=== PATIENT | female | born 1935 | race Caucasian/White ===

== ENCOUNTER 2018-06-18 13:11 | Inpatient (IN) | payer MEDICARE, OTHER ==
--- NOTE | 2018-06-18 14:11 | C.PDOC ---
History Of Present Illness Translated via son 83 year old female patient with hx of HTN and HLD presents to the ER c/o pain from right knee to right ankle for x1 week. Associated symptoms includes vomiting and painful to bear weight on right leg. Patient notes she tried taking Naprosyn and Tylenol with no relief. Patient had an US of her right leg x4 days ago, results were (-) negative. Patient denies leg swelling, no trauma, no chest pain, no SOB and has never had this pain before. She denies any redness or swelling to the knee Time Seen by Provider: 06/18/18 13:50 Chief Complaint (Nursing): GI Problem History Per: Patient History/Exam Limitations: no limitations Onset/Duration Of Symptoms: Days (x1 week) Current Symptoms Are (Timing): Still Present Past Medical History Reviewed: Historical Data, Nursing Documentation, Vital Signs Vital Signs: Last Vital Signs Temp 97.9 F 06/18/18 13:35 Pulse 70 06/18/18 13:35 Resp 16 06/18/18 13:35 BP 172/69 H 06/18/18 13:35 Pulse Ox 98 06/18/18 13:35 - Medical History PMH: HTN, Hyperlipidemia, Hypothyroidism Family History: States: Unknown Family Hx - Social History Hx Alcohol Use: No Hx Substance Use: No - Immunization History Hx Tetanus Toxoid Vaccination: No Hx Influenza Vaccination: No Hx Pneumococcal Vaccination: No Review Of Systems Constitutional: Positive for: Other (painful to bear weight on right knee and right ankle; no trauma/fall) Cardiovascular: Negative for: Chest Pain Respiratory: Negative for: Shortness of Breath Gastrointestinal: Positive for: Vomiting Musculoskeletal: Positive for: Leg Pain (right knee and right ankle ). Negative for: Other (leg swelling) Physical Exam - Physical Exam Appears: Non-toxic, No Acute Distress Skin: Warm, Dry Head: Normacephalic Eye(s): bilateral: Normal Inspection, PERRL, EOMI Oral Mucosa: Moist Neck: Normal ROM, Trachea Midline, Supple Chest: Symmetrical, No Deformity Cardiovascular: Rhythm Regular, No Friction Rub Respiratory: No Rales, No Rhonchi, No Wheezing Gastrointestinal/Abdominal: Soft, No Tenderness, No Distention Extremity: Normal ROM, Tenderness (posterior R knee and R ankle), No Calf Tenderness, Capillary Refill (<2 sec), No Swelling Extremity: Left: Atraumatic, Right: Atraumatic, Painful To Bear Weight, Bilateral: Hips Non-Tender, Normal Color And Temperature, Other (n/v intact, Full passive and active ROM) Pulses: Left Dorsalis Pedis: Normal, Right Dorsalis Pedis: Normal Neurological/Psych: Oriented x3, Normal Speech, Normal Cognition, No Cerebellar Signs, Normal Motor Extremity: Right: No Drift, Left: No Drift, Upper: No Drift, Lower: No Drift ED Course And Treatment - Laboratory Results Result Diagrams: 06/18/18 14:36 06/18/18 15:06 O2 Sat by Pulse Oximetry: 98 (RA) Pulse Ox Interpretation: Normal - Other Rad R knee X-Ray: Read By Radiologist Interpretation: Accession No. : [id number]. Patient Name / ID : CARL THORNE / [id number]. Exam Date : 06/18/2018 14:33:03 ( Approved ). Study Comment : Sex / Age : F / 83Y. Creator : Shyam Hendricks MD. Dictator : Shyam Hendricks MD. Clinical Staff Anesthesiologist : Consulting Practice Manager : Shyam Hendricks MD. Approver2 : Report Date : 06/18/2018 15:21:33. My Comment : . Date of service: 06/18/2018. PROCEDURE: Right Knee Radiographs. HISTORY: r knee pain. COMPARISON: None. FINDINGS: BONES: Normal. No fracture. JOINTS: There appears to be mild medial joint space narrowing. JOINT EFFUSION: Small suprapatellar joint effusion. OTHER FINDINGS: None. IMPRESSION: No fractures. Small suprapatellar joint effusion Medical Decision Making Medical Decision Makin yr old female w/ hx HTN, recent negative DVT study @ [facility] p/w R knee pain w/ out swelling or trauma and multiple episodes of N/V. No fever or chills. No erythema overlaying knee. No hx of knee surgery. N/V intact distally. Full ROM, passive and actively. No pain to R foot, R hip or R ankle. ?severe osteoarthritis vs fx. Impression: right knee and ankle pain with vomiting Plans: -- EKG -- blood work -- XR right knee -- Zofran -- UA 1500 1530 XR Knee unremarkable. Na+ to 108, gentle hydration started K to 2.9, to replete Mag 1.4, to replete Gluc unremarkable Paged ICU: they will call back [phone] Paged ICU: they will call back [phone] appreciate consult w/ Dr. De Anda: we are to order urine lytes and osm, contin ue slow na hydration. Accepts admission appreciate consult w/ Dr. Bullock: accepts admission Pt notes pain to R knee: morphine ordered. No redness. N/V intact. Full Active and passive ROM. Disposition - Disposition Disposition Time: 15:30 Condition: GOOD Forms: [facility] (Kinyarwanda) - Clinical Impression Clinical Impression: Hyponatremia - Scribe Statement The provider has reviewed the documentation as recorded by the Thuan Bunn Do Provider Attestation: All medical record entries made by the Scribe were at my direction and personally dictated by me. I have reviewed the chart and agree that the record accurately reflects my personal performance of the history, physical exam, medical decision making, and the department course for this patient. I have also personally directed, reviewed, and agree with the discharge instructions and disposition.
[2018-06-18 14:38] LABS: BASO % 0.1 % (0.0-2.0); HEMOGLOBIN 12.5 g/dL (11.0-16.0); LYMPH # 0.7 K/uL (1.0-4.3); MEAN CELL VOLUME 82.6 fL (81.0-99.0); MEAN CORPUSCULAR HEMOGLOBIN 29.4 pg (27.0-31.0); MEAN CORPUSCULAR HGB CONC 35.6 g/dL (33.0-37.0); MEAN PLATELET VOLUME 7.4 fL (7.2-11.7); MONO # 0.4 K/uL (0.0-0.8); MONO % 3.4 % (0.0-10.0); NEUT # 11.2 K/uL (1.8-7.0); NEUT % 90.5 % (50.0-75.0); PLATELET COUNT 271 K/uL (130-400); RBC 4.25 Mil/uL (3.80-5.20); RED CELL DISTRIBUTION WIDTH 13.9 % (11.5-14.5); WHITE BLOOD COUNT 12.4 K/uL (4.8-10.8)
[2018-06-18 15:07] LABS: BANDS 3 % (0-2); LYMPHOCYTE 6 % (20-40); MONOCYTE 3 % (0-10); NEUTROPHIL 88 % (50-75); PLATELET ESTIMATE NORMAL (NORMAL); TOTAL CELLS COUNTED 100
--- NOTE | 2018-06-18 15:23 | RAD ---
Date of service: 06/18/2018 PROCEDURE: Right Knee Radiographs. HISTORY: r knee pain COMPARISON: None. FINDINGS: BONES: Normal. No fracture. JOINTS: There appears to be mild medial joint space narrowing. JOINT EFFUSION: Small suprapatellar joint effusion OTHER FINDINGS: None. IMPRESSION: No fractures. Small suprapatellar joint effusion
[2018-06-18 15:52] LABS: ALB/GLOB RATIO 1.5 (1.0-2.1); ALBUMIN 4.5 g/dL (3.5-5.0); ALT/SGPT 44 U/L (9-52); AST/SGOT 82 U/L (14-36); BLOOD UREA NITROGEN 12 mg/dL (7-17); CALCIUM 8.6 mg/dl (8.6-10.4); GFR NON-AFRICAN AMERICAN > 60; LIPASE 64 U/L (23-300)
[2018-06-18] MEDS ORDERED: Potassium Chloride 20 mEq ER Tab PO ONE ×2 (15:59→16:17)
[2018-06-18] MEDS ORDERED: Magnesium Sulfate 1 gm in D5W 1 GM/100 ML BAG IVPB ONE ×2 (16:00→16:17)
[2018-06-18] MEDS ORDERED: Sodium Chloride 0.9% 1,000 ML IV SCH ×2 (16:15→16:46)
[2018-06-18] MEDS ORDERED: Morphine 4 MG/ML VIAL ONE (16:19)
[2018-06-18] MEDS ORDERED: Sodium Chloride 0.9% 1,000 ML ONE (17:37)
[2018-06-18] MEDS: Sodium Chloride 0.9% 1,000 ML IV SCH (17:38)
[2018-06-18 19:27] LABS: BLOOD UREA NITROGEN 11 mg/dL (7-17); CALCIUM 8.4 mg/dl (8.6-10.4); GFR NON-AFRICAN AMERICAN > 60; HDL CHOLESTEROL 98 mg/dL (30-70)
[2018-06-18 19:34] LABS: LDL CHOLESTEROL 54 mg/dL (0-129)
[2018-06-18 19:37] LABS: B-TYPE NATRIURETIC PEPTIDE 915 pg/mL (0-900); FREE T4 1.49 ng/dL (0.78-2.19)
[2018-06-18 19:37] LABS: CREATININE, RANDOM URINE 53.4 mg/dL
[2018-06-18 19:58] LABS: T3 0.963 nmol/L (1.49-2.60)
[2018-06-18] MEDS: Potassium Chloride 20 mEq ER Tab PO SCH (20:03)
[2018-06-18] MEDS: Magnesium Sulfate 1 gm in D5W 1 GM/100 ML BAG IVPB SCH ×2 (20:04→21:09)
--- NOTE | 2018-06-18 20:39 | CP.PCM.CON ---
History of Present Illness - History of Present Illness History of Present Illness: ICU Consult Note Baljit Cyr, [facility] PGY-3 This is an 83 yo F with PMH of HTN, HLD, and Hypothyroidism who presented to for complaint of R knee pain. ICU was consulted due to Na 108 on labs in the ED. As per son at bedside, patient developed pain 4 days prior, and was seen in the ED at [facility] at that time. Duplex was done, negative for DVT, so patient was discharged to home with Naprosyn, which has not provided relief. Pain has persisted into today, so son brought patient in. Additionally, son reports onset of multiple episodes of clear emesis since yesterday, occasionally triggered with PO Naprosyn but also occurring without clear inciting factor, and not triggered with all PO intake (s till tolerating other meds, tolerating PO fluids). Son and patient estimate 10- episodes total of clear emesis between yesterday afternoon and now. Denies bilious or bloody emesis. Of note, patient is on thiazide diuretic for HTN, and reports compliance with all medications. Denies fevers, chills, chest pain, shortness of breath, diarrhea, focal weakness, dizziness, vision changes, or dysuria. Son denies observing any clear neurologic sx, including seizures, focal or generalized twitching/shaking, or pt reporting severe/pounding headaches. No prior hx of severe (or any) hyponatremia as per son. All other ROS in 12-system review negative. PMH: as above PSH: denies Fam Hx: unknown by pt and son Soc Hx: denies alcohol/tobacco/illicits PMD: Dr. Bullock Review of Systems - Review of Systems All systems: reviewed and no additional remarkable complaints except (as per HPI) Past Patient History - Past Medical History & Family History Past Medical History?: Yes - Past Social History Smoking Status: Never Smoked - CARDIAC Hx Hypertension: Yes - HEENT Other/Comment: Wears glasses - ENDOCRINE/METABOLIC Hx Hypothyroidism: Yes - MUSCULOSKELETAL/RHEUMATOLOGICAL Hx Falls: No - PSYCHIATRIC Hx Substance Use: No - SURGICAL HISTORY Hx Surgeries: No - ANESTHESIA Hx Anesthesia: No Meds Allergies/Adverse Reactions: Allergies Allergy/AdvReac Type Severity Reaction Status Date / Time No Known Allergies Allergy Verified 06/18/18 20:17 - Medications Medications: Current Medications Amlodipine Besylate (Norvasc) 5 mg PO DAILY [facility] Last Admin: 06/18/18 17:38 Dose: 5 mg Sodium Chloride (Sodium Chloride 0.9%) 1,000 mls @ 75 mls/hr IV .[id number] [facility] Last Admin: 06/18/18 17:38 Dose: 75 mls/hr Potassium Chloride (Potassium Chloride 10 Meq/100 Ml) 10 meq in 100 mls @ 100 mls/hr IVPB Q1H [facility] Stop: 06/18/18 23:44 Ondansetron HCl (Zofran Inj) 4 mg IVP Q6 PRN PRN Reason: Nausea/Vomiting Potassium Chloride (K-Dur 20 Meq Er Tab) 40 meq PO Q6H [facility] Stop: 06/19/18 13:46 Last Admin: 06/18/18 20:03 Dose: 40 meq Physical Exam - Constitutional Appears: Non-toxic, No Acute Distress (complaining about knee pain, but had received morphine in ED prior to assessment by ICU team) - Head Exam Head Exam: ATRAUMATIC, NORMAL INSPECTION, NORMOCEPHALIC - Eye Exam Eye Exam: Normal appearance. absent: Conjunctival injection, Scleral icterus Pupil Exam: absent: Fixed, Irregular - ENT Exam ENT Exam: Mucous Membranes Moist. absent: Mucous Membranes Dry Additional comments: not clinically dry appearing - Neck Exam Neck exam: Positive for: Full Rom, Normal Inspection. Negative for: Thyromegaly - Respiratory Exam Respiratory Exam: Clear to Auscultation Bilateral, NORMAL BREATHING PATTERN. absent: Accessory Muscle Use, Chest Wall Tenderness, Decreased Breath Sounds, Rales, Rhonchi, Wheezes - Cardiovascular Exam Cardiovascular Exam: REGULAR RHYTHM, RRR, +S1, +S2. absent: Bradycardia, Tachycardia, Irregular Rhythm, JVD, +S4 - GI/Abdominal Exam GI & Abdominal Exam: Normal Bowel Sounds, Soft. absent: Diminished Bowel Sounds, Distended, Firm, Hyperactive Bowel Sounds, Hypoactive Bowel Sounds, Rigid, Tenderness - Extremities Exam Extremities exam: Positive for: normal capillary refill, normal inspection, pedal pulses present. Negative for: calf tenderness, pedal edema, tenderness Additional comments: pt reports pain at medial R knee and inferiorly, but not present at time of ICU team exam (had just received IV morphine from ED however, may be confounding exam) - Neurological Exam Additional comments: awake and alert, answering questions through son appropriately, following commands appropriately - Psychiatric Exam Psychiatric exam: Normal Affect, Normal Mood - Skin Skin Exam: Dry, Intact, Normal Color, Warm Results - Vital Signs Recent Vital Signs: Last Vital Signs Temp 97.7 F 06/18/18 18:40 Pulse 83 06/18/18 20:00 Resp 20 06/18/18 20:00 BP 128/50 L 06/18/18 19:44 Pulse Ox 94 L 06/18/18 20:00 - Labs Result Diagrams: 06/18/18 14:36 06/18/18 18:53 Labs: Laboratory Results - last 24 hr 06/18/18 06/18/18 06/18/18 14:36 15:06 18:53 WBC 12.4 H RBC 4.25 Hgb 12.5 Hct 35.0 MCV 82.6 MCH 29.4 MCHC 35.6 RDW 13.9 Plt Count 271 MPV 7.4 Neut % (Auto) 90.5 H Lymph % (Auto) 6.0 L [place] % (Auto) 3.4 Eos % (Auto) 0.0 Baso % (Auto) 0.1 Neut # (Auto) 11.2 H Lymph # (Auto) 0.7 L [place] # (Auto) 0.4 Eos # (Auto) 0.0 Baso # (Auto) 0.0 Neutrophils % (Manual) 88 H Band Neutrophils % 3 H Lymphocytes % (Manual) 6 L Monocytes % (Manual) 3 Platelet Estimate Normal RBC Morphology Normal Sodium 108 L* 108 L* Potassium 2.9 L 2.4 L* Chloride 68 L 68 L Carbon Dioxide 28 27 Anion Gap 15 15 BUN 12 11 Creatinine 0.6 L 0.6 L Est GFR ( Amer) > 60 > 60 Est GFR (Non-Af Amer) > 60 > 60 Random Glucose 141 H 154 H Serum Osmolality Calcium 8.6 8.4 L Magnesium 1.4 L Total Bilirubin 0.9 AST 82 H ALT 44 Alkaline Phosphatase 61 NT-Pro-B Natriuret Pep 915 H Total Protein 7.5 Albumin 4.5 Globulin 3.0 Albumin/Globulin Ratio 1.5 Triglycerides 43 Cholesterol 186 LDL Cholesterol Direct 54 HDL Cholesterol 98 H Lipase 64 Free T4 Thyroxine (T4) 10.0 Free T3 pg/mL 2.05 L Total T3 0.963 L TSH 3rd Generation 4.54 Urine Osmolality Ur Random Creatinine Ur Random Sodium Ur Random Potassium Ur Random Urea Nitrogn 06/18/18 06/18/18 06/18/18 18:53 19:26 19:26 WBC RBC Hgb Hct MCV MCH MCHC RDW Plt Count MPV Neut % (Auto) Lymph % (Auto) Cole % (Auto) Eos % (Auto) Baso % (Auto) Neut # (Auto) Lymph # (Auto) Cole # (Auto) Eos # (Auto) Baso # (Auto) Neutrophils % (Manual) Band Neutrophils % Lymphocytes % (Manual) Monocytes % (Manual) Platelet Estimate RBC Morphology Sodium Potassium Chloride Carbon Dioxide Anion Gap BUN Creatinine Est GFR ( Amer) Est GFR (Non-Af Amer) Random Glucose Serum Osmolality 229 L Calcium Magnesium Total Bilirubin AST ALT Alkaline Phosphatase NT-Pro-B Natriuret Pep Total Protein Albumin Globulin Albumin/Globulin Ratio Triglycerides Cholesterol LDL Cholesterol Direct HDL Cholesterol Lipase Free T4 1.49 Thyroxine (T4) Free T3 pg/mL Total T3 TSH 3rd Generation Urine Osmolality 485 Ur Random Creatinine 53.4 Ur Random Sodium 71 Ur Random Potassium 67.3 Ur Random Urea Nitrogn 498 Assessment & Plan - Assessment and Plan (Free Text) Assessment: This is an 83 yo F with PMH of HTN, HLD, and Hypothyroidism who presented to for complaint of R knee pain, but was found to be severely hyponatremia at 108. She was admitted to the ICU for careful repletion of sodium and for close monitoring, given the high seizure risk associated with her hyponatremia. Plan: Neuro: -awake and alert, following all commands appropriately -no reported seizure activity, but high risk due to Na 108 -close monitoring in ICU while carefully repleting sodium, goal is Na increased by 4-6 within 24 hours and not more than 10-12 within 48 hours Pulm: -no respiratory distress in ED, clear breath sounds on exam -CXR ordered to assess for lung mass given concern for SIADH, f/u -no indication for supplemental O2 at this time, satting well on room air Cardio: -Hx HTN, but holding Thiazide diuretic due to hypoNa, will instead start Norvasc 5mg PO daily for HTN while inpatient -NS 75cc/hr, BMPs q4 to monitor sodium -maintaining MAP > 65, no indication for pressor support at this time GI: -NPO except meds due to high seizure risk, want to avoid aspiration -Protonix for GI ppx, Zofran PRN for N/V prevention Renal: -severe hyponatremia at 108, ddx: SIADH vs hypovolemic hypoNa (2/2 thiazide diuretic +/- multiple episodes of emesis) hypochloremia and hypokalemia likely 2/2 emesis NS 75cc/hr, BMPs q4 -urine and serum osms ordered, urine electrolytes ordered, thyroid panel ordered -Mag 1.4, repleted in ED, pending recheck -K 2.9, to be repleted after Mag to ensure adequate uptake of K -Nephro consulted (Dr. Arevalo), appreciate all recs -Cr 0.6, making urine, continue to monitor -Best, strict I's and O's Heme: -Hgb 12.5, no prior labs for comparison -no signs/sx of bleeding, continue to monitor -SCDs for DVT ppx ID: -WBCs 12.4, but afebrile -possibly stress rxn 2/2 complaint of knee pain, continue to monitor -cultures ordered, f/u -can monitor off abx for now Dispo: ICU for close monitoring given high seizure risk, careful repletion of sodium with BMPs q4 FEN: NPO, NS 75cc/hr, K and Mg repletions as needed Access: Peripheral IVs Consults: Nephro, ICU Ppx: Protonix for GI, SCDs for DVT Code Status: unknown, so FULL by default Seen, reviewed, and discussed with attending, Dr. De Anda
--- NOTE | 2018-06-18 21:26 | CP.PCM.HP ---
Present on Admission - Present on Admission Any Indicators Present on Admission: No Past Patient History - Past Medical History & Family History Past Medical History?: Yes - Past Social History Smoking Status: Never Smoked - CARDIAC Hx Hypertension: Yes - HEENT Other/Comment: Wears glasses - ENDOCRINE/METABOLIC Hx Hypothyroidism: Yes - MUSCULOSKELETAL/RHEUMATOLOGICAL Hx Falls: No - PSYCHIATRIC Hx Substance Use: No - SURGICAL HISTORY Hx Surgeries: No - ANESTHESIA Hx Anesthesia: No Meds Allergies/Adverse Reactions: Allergies Allergy/AdvReac Type Severity Reaction Status Date / Time No Known Allergies Allergy Verified 06/18/18 20:17 Results - Vital Signs Recent Vital Signs: Last Vital Signs Temp 97.7 F 06/18/18 18:40 Pulse 83 06/18/18 20:00 Resp 20 06/18/18 20:00 BP 128/50 L 06/18/18 19:44 Pulse Ox 94 L 06/18/18 20:00 - Labs Result Diagrams: 06/21/18 06:11 06/21/18 06:11 Labs: Laboratory Results - last 24 hr 06/18/18 06/18/18 06/18/18 14:36 15:06 18:53 WBC 12.4 H RBC 4.25 Hgb 12.5 Hct 35.0 MCV 82.6 MCH 29.4 MCHC 35.6 RDW 13.9 Plt Count 271 MPV 7.4 Neut % (Auto) 90.5 H Lymph % (Auto) 6.0 L [place] % (Auto) 3.4 Eos % (Auto) 0.0 Baso % (Auto) 0.1 Neut # (Auto) 11.2 H Lymph # (Auto) 0.7 L [place] # (Auto) 0.4 Eos # (Auto) 0.0 Baso # (Auto) 0.0 Neutrophils % (Manual) 88 H Band Neutrophils % 3 H Lymphocytes % (Manual) 6 L Monocytes % (Manual) 3 Platelet Estimate Normal RBC Morphology Normal Sodium 108 L* 108 L* Potassium 2.9 L 2.4 L* Chloride 68 L 68 L Carbon Dioxide 28 27 Anion Gap 15 15 BUN 12 11 Creatinine 0.6 L 0.6 L Est GFR ( Amer) > 60 > 60 Est GFR (Non-Af Amer) > 60 > 60 Random Glucose 141 H 154 H Serum Osmolality Calcium 8.6 8.4 L Magnesium 1.4 L Total Bilirubin 0.9 AST 82 H ALT 44 Alkaline Phosphatase 61 NT-Pro-B Natriuret Pep 915 H Total Protein 7.5 Albumin 4.5 Globulin 3.0 Albumin/Globulin Ratio 1.5 Triglycerides 43 Cholesterol 186 LDL Cholesterol Direct 54 HDL Cholesterol 98 H Lipase 64 Free T4 Thyroxine (T4) 10.0 Free T3 pg/mL 2.05 L Total T3 0.963 L TSH 3rd Generation 4.54 Urine Osmolality Ur Random Creatinine Ur Random Sodium Ur Random Potassium Ur Random Urea Nitrogn 06/18/18 06/18/18 06/18/18 18:53 19:26 19:26 WBC RBC Hgb Hct MCV MCH MCHC RDW Plt Count MPV Neut % (Auto) Lymph % (Auto) [place] % (Auto) Eos % (Auto) Baso % (Auto) Neut # (Auto) Lymph # (Auto) [place] # (Auto) Eos # (Auto) Baso # (Auto) Neutrophils % (Manual) Band Neutrophils % Lymphocytes % (Manual) Monocytes % (Manual) Platelet Estimate RBC Morphology Sodium Potassium Chloride Carbon Dioxide Anion Gap BUN Creatinine Est GFR ( Amer) Est GFR (Non-Af Amer) Random Glucose Serum Osmolality 229 L Calcium Magnesium Total Bilirubin AST ALT Alkaline Phosphatase NT-Pro-B Natriuret Pep Total Protein Albumin Globulin Albumin/Globulin Ratio Triglycerides Cholesterol LDL Cholesterol Direct HDL Cholesterol Lipase Free T4 1.49 Thyroxine (T4) Free T3 pg/mL Total T3 TSH 3rd Generation Urine Osmolality 485 Ur Random Creatinine 53.4 Ur Random Sodium 71 Ur Random Potassium 67.3 Ur Random Urea Nitrogn 498
--- NOTE | 2018-06-18 22:19 | CP.PCM.PN ---
Subjective - Date & Time of Evaluation Date of Evaluation: 06/18/18 Time of Evaluation: 18:30 - Subjective Subjective: 83 yo F w/ pmh of htn, hypothyroidism, was brought to ED by family after multiple episodes of vomiting since yesterday; found to be severely hyponatremic for which nephrology is being consulted; Patient reportedly had suddent onset of R lower leg pain that started a few days ago; she went to [facility] where US was done that was reportedly negative per her son; she was prescribed ibuprofen and sent home; patient started taking both naproxen and advil without significant improvement in pain; PO food intake had decreased since previous few days but vomiting gurwinder began yesterday with son reporting 10-11 episodes until earlier today; no associated diarrhea; patient denies any feeling of dizziness; denies any decrease in ur ination; patient did continue to drink 5-6 cups of water daily; Objective - Vital Signs/Intake and Output Vital Signs (last 24 hours): Temp Pulse Resp BP Pulse Ox 97.7 F 83 20 128/50 L 94 L 06/18/18 18:40 06/18/18 20:00 06/18/18 20:00 06/18/18 19:44 06/18/18 20:00 - Medications Medications: Current Medications Amlodipine Besylate (Norvasc) 5 mg PO DAILY [facility] Last Admin: 06/18/18 17:38 Dose: 5 mg Sodium Chloride (Sodium Chloride 0.9%) 1,000 mls @ 75 mls/hr IV .[id number] [facility] Last Admin: 06/18/18 17:38 Dose: 75 mls/hr Potassium Chloride (Potassium Chloride 10 Meq/100 Ml) 10 meq in 100 mls @ 100 mls/hr IVPB Q1H [facility] Stop: 06/18/18 23:44 Last Admin: 06/18/18 21:32 Dose: 100 mls/hr Ondansetron HCl (Zofran Inj) 4 mg IVP Q6 PRN PRN Reason: Nausea/Vomiting Pantoprazole Sodium (Protonix Ec Tab) 20 mg PO DAILY [facility] Potassium Chloride (K-Dur 20 Meq Er Tab) 40 meq PO Q6H [facility] Stop: 06/19/18 13:46 Last Admin: 06/18/18 20:03 Dose: 40 meq - Labs Labs: 06/18/18 14:36 06/18/18 18:53 - Constitutional Appears: Non-toxic, No Acute Distress - Eye Exam Eye Exam: Normal appearance. absent: Scleral icterus - ENT Exam ENT Exam: Mucous Membranes Moist - Respiratory Exam Respiratory Exam: Clear to Ausculation Bilateral. absent: Respiratory Distress - Cardiovascular Exam Cardiovascular Exam: RRR, +S1, +S2 - GI/Abdominal Exam GI & Abdominal Exam: Soft. absent: Distended, Tenderness - Exam Exam: absent: Bladder Distension - Extremities Exam Additional comments: no leg edema; - Neurological Exam Neurological Exam: Alert, Awake - Psychiatric Exam Psychiatric exam: Normal Affect, Normal Mood - Skin Skin Exam: Normal Color, Warm Assessment and Plan (1) Hyponatremia Assessment & Plan: Severe hyponatremia in the setting of GI losses from vomiting as well as being on thiazide diuretic; inadequate solute intake as well as severe pain and NSAID use may have been contributory; high urine osm can be consistent with volume depletion; timeframe of drop in serum Na appears to have happened recently as patient reportedly had blood work just a few days ago with serum Na preumably close to normal range (results not available); -Goal correction of serum Na is no more than 6-8 meq over 24 hr period to avoid osmotic demyelination; -Agree with IVF w/ NS at 75 cc/hr; -Agree with aggressive potassium replenishment (will help correct hyponatremia); -If no improvement in serum Na within a few hours, recommend to bolus 250-500 cc to attempt to correct volume depletion impetus for high ADH activity; -Will avoid tolvaptan until serum Na safely in 120's range (even if this is SIADH, tolvaptan would not be a good choice for now as we cannot predict how quickly it would raise serum Na); -Avoid NSAIDS for pain (potentiates the effect of ADH); -Continue adequate pain control with other meds; -PO 1.5L daily fluid restriction; Status: Acute (2) Hypokalemia Assessment & Plan: Profound hypokalemia likely induced by vomiting, thiazide diuretic as well as secondary hyperaldosteronism due to volume depletion; agree with aggressive K repletion as well as IVF; agree with Mag repletion (should run IV Mag slow to avoid renal wasting); Status: Acute (3) HTN (hypertension) Assessment & Plan: BP dropping, currently normotenive; agree with holding thiazide in the setting of hyponatremia; agree with norvasc 5 mg daily; Status: Chronic - Assessment and Plan (Free Text) Assessment: Critical care time > 35 minutes
[2018-06-18 23:31] LABS: BLOOD UREA NITROGEN 10 mg/dL (7-17); CALCIUM 7.9 mg/dl (8.6-10.4); GFR NON-AFRICAN AMERICAN > 60
[2018-06-19] MEDS: Sodium Chloride 0.9% 500 ML IV SCH ×2 (00:26→01:41)
[2018-06-19] MEDS: Potassium Chloride 20 mEq ER Tab PO SCH ×4 (01:45→14:13)
[2018-06-19] MEDS ORDERED: DiphenhydrAMINE 50 mg/ml Inj IVP STA (03:28)
[2018-06-19] MEDS ORDERED: DiphenhydrAMINE 12.5 mg/5 ml LIQ UD (5 ml) PO STA (03:32)
[2018-06-19] MEDS: Sodium Chloride 0.9% 1,000 ML IV SCH ×2 (03:47→07:07)
[2018-06-19 06:35] LABS: BASO % 0.1 % (0.0-2.0); EOS % 0.1 % (0.0-4.0); LYMPH # 1.2 K/uL (1.0-4.3); LYMPH % 7.9 % (20.0-40.0); MEAN CELL VOLUME 83.1 fL (81.0-99.0); MEAN CORPUSCULAR HEMOGLOBIN 29.7 pg (27.0-31.0); MEAN CORPUSCULAR HGB CONC 35.7 g/dL (33.0-37.0); MEAN PLATELET VOLUME 7.7 fL (7.2-11.7); MONO # 1.4 K/uL (0.0-0.8); MONO % 9.4 % (0.0-10.0); NEUT # 12.3 K/uL (1.8-7.0); NEUT % 82.5 % (50.0-75.0); PLATELET COUNT 261 K/uL (130-400); RBC 4.04 Mil/uL (3.80-5.20); RED CELL DISTRIBUTION WIDTH 14.2 % (11.5-14.5)
--- NOTE | 2018-06-19 06:40 | PN ---
DATE: 06/18/2018 CHIEF COMPLAINT: Right knee and leg pain. SUBJECTIVE: This is an 83-year-old female, who has a history of hypertension and hyperlipemia. She denies any history of diabetes, heart problems. She is not taking any diuretics and according to the son for the last 3 days, she is having right knee and leg pain, which was intense, nontolerable as she came to the emergency room. Pain is present on rest as well as is worse with exacerbation and it is in the right knee all the way down to right ankle. The patient denies any history of injury. There is some swelling of the leg. She denies any fever or chills. She denies any change in color. She denies any trauma to the leg. She has prior history of arthritis, extensive, in the small and large joints of the body. She denies any history of shoulder pain, elbow pains, or pain on the other side of the leg. She denies any history of prolonged immobilization or long distance travel. She denies any nausea or vomiting. Other than that, the patient has no symptoms. She denies any headache, dizziness, or vertigo. She has extensive nausea and vomiting according to son yesterday, and the patient attempted to control her pain with and Tylenol with no response. According to her, she had ultrasound of her right leg done from her doctor's advice, which was negative for blood clots. Other than that, she denies any chest pain or palpitation. She denies any history of tingling, numbness, paresthesias. She denies any history of polyuria, polydipsia, polyphagia. She denies any history of hematuria or pyuria. PAST MEDICAL HISTORY: Hypertension, hyperlipemia, and hypothyroidism. SOCIAL HISTORY: Nonsmoker, non-ET[employer] user. CURRENT MEDICATIONS: At home, she is on Pravachol, multivitamin, levothyroxine 25 mg, and chlorthalidone. PHYSICAL EXAMINATION: GENERAL: This in an elderly female in [id number] distress with right leg pain. VITAL SIGNS: Blood pressure 128/50, pulse 57, respiratory rate 17, temperature 99. SKIN: Senile turgor, no bruits, no purpura. HEENT: Atraumatic, normocephalic, negative pallor, negative jaundice. Extraocular movements are intact. NECK: Supple. No JVD. No lymph nodes. No thyromegaly. No carotid bruits. CHEST WALL: Bilateral symmetrical expansion. No tenderness. No deformity. LUNGS: Bilaterally clear. No rales. No rhonchi. CVS: S1 and S2, regular. No heave noted. ABDOMEN: Soft and nontender. Bowel sounds are positive. RECTAL: No masses. No bleed. EXTREMITIES: No clubbing, cyanosis, or edema. Right knee, there is some puffiness and there is restricted range of movement. EXCHANGE TELLER: Awake, alert, and oriented x3. Cranial nerve II through XII are normal. Power 5/5 x4. Plantars are downgoing. ASSESSMENT: 1. Right knee pain, most likely , likely to be deep venous thrombosis. 2. Hyponatremia and hypochloremia. The patient has intense nausea and vomiting as per son. The patient has low sodium and low potassium. Also, there is diuretic as the patient was taking for some multifactorial hyponatremia. 3. Hypokalemia. 4. History of hypertension. PLAN: The patient is admitted to ICU. X-rays of the knee show arthritis, and we will monitor the patient. Juan R Bullock MD
[2018-06-19 06:54] LABS: ALB/GLOB RATIO 1.4 (1.0-2.1); ALBUMIN 3.7 g/dL (3.5-5.0); ALT/SGPT 43 U/L (9-52); AST/SGOT 97 U/L (14-36); BLOOD UREA NITROGEN 10 mg/dL (7-17); CALCIUM 7.6 mg/dl (8.6-10.4); GFR NON-AFRICAN AMERICAN > 60; URIC ACID 2.4 mg/dL (2.2-7.5)
[2018-06-19] MEDS ORDERED: Sodium Chloride 3% 500 ML IV ONE (07:09)
--- NOTE | 2018-06-19 07:12 | CP.CCUPN ---
<Bc Aguilar P - Last Filed: 06/19/18 16:58> CCU Objective - Vital Signs / Intake & Output Vital Signs (Last 4 hours): Vital Signs Temp Pulse Resp BP Pulse Ox 06/19/18 16:04 77 18 147/64 100 06/19/18 16:00 98.2 F 77 14 99 06/19/18 15:03 62 20 109/41 L 99 06/19/18 15:00 67 21 99 06/19/18 14:03 65 16 125/52 L 96 06/19/18 14:00 64 13 94 L 06/19/18 13:48 73 15 124/60 06/19/18 13:00 72 18 134/60 99 Intake and Output (Last 8hrs): Intake & Output 06/19/18 06/19/18 06/19/18 06:59 14:59 22:59 Intake Total 1125 1040 600 Output Total 0 3300 400 Balance 1125 -2260 200 Weight 139 lb 15.896 oz Intake: Intake, IV Amount 1125 1040 600 Left Antecubital 1025 75 Left Distal Port 100 Antecubital Left Forearm 965 600 Oral 0 0 Output: Urine 0 3300 400 Urethral (Best) 3300 400 Urine, Voided 0 Other: # Bowel Movements 0 0 - Medications Active Medications: Active Medications Generic Name Dose Route Start Last Admin Trade Name Freq PRN Reason Stop Dose Admin Amlodipine Besylate 5 mg 06/18/18 17:30 06/19/18 09:52 Norvasc PO Not Given DAILY SHARI Enoxaparin Sodium 30 mg 06/19/18 10:00 06/19/18 09:50 Lovenox SC 30 mg DAILY SHARI Administration Dextrose 1,000 mls @ 100 mls/hr 06/19/18 11:15 06/19/18 11:05 Dextrose 5% In Water 1000 Ml IV 100 mls/hr .Q10H SHARI Administration Ondansetron HCl 4 mg 06/18/18 17:17 Zofran Inj IVP Q6 PRN Nausea/Vomiting Pantoprazole Sodium 20 mg 06/19/18 10:00 06/19/18 09:50 Protonix Ec Tab PO 20 mg DAILY SHARI Administration - Patient Studies Lab Studies: Microbiology Studies 06/18/18 20:59 Urine Culture - Preliminary Urine,Catheterized No growth. Lab Studies 06/19/18 06/19/18 06/19/18 Range/Units 16:33 13:26 09:50 WBC (4.8-10.8) K/uL RBC (3.80-5.20) Mil/uL Hgb (11.0-16.0) g/dL Hct (34.0-47.0) % MCV (81.0-99.0) fL MCH (27.0-31.0) pg MCHC (33.0-37.0) g/dL RDW (11.5-14.5) % Plt Count (130-400) K/uL MPV (7.2-11.7) fL Neut % (Auto) (50.0-75.0) % Lymph % (Auto) (20.0-40.0) % Gage % (Auto) (0.0-10.0) % Eos % (Auto) (0.0-4.0) % Baso % (Auto) (0.0-2.0) % Neut # (Auto) (1.8-7.0) K/uL Lymph # (Auto) (1.0-4.3) K/uL Gage # (Auto) (0.0-0.8) K/uL Eos # (Auto) (0.0-0.7) K/uL Baso # (Auto) (0.0-0.2) K/uL Neutrophils % (Manual) (50-75) % Band Neutrophils % (0-2) % Lymphocytes % (Manual) (20-40) % Monocytes % (Manual) (0-10) % Platelet Estimate (NORMAL) RBC Morphology Sodium 122 L 121 L (132-148) mmol/L Potassium 4.1 4.2 (3.6-5.2) mmol/L Chloride 88 L 88 L (98-107) mmol/L Carbon Dioxide 24 23 (22-30) mmol/L Anion Gap 14 13 (10-20) BUN 9 10 (7-17) mg/dL Creatinine 0.6 L 0.7 (0.7-1.2) mg/dL Est GFR ( Amer) > 60 > 60 Est GFR (Non-Af Amer) > 60 > 60 Random Glucose 111 H 89 (65-105) mg/dL Serum Osmolality (272-300) mosm/kg Uric Acid (2.2-7.5) mg/dL Calcium 8.5 L 8.1 L (8.6-10.4) mg/dl Phosphorus (2.5-4.5) mg/dL Magnesium (1.6-2.3) mg/dL Total Bilirubin (0.2-1.3) mg/dL AST (14-36) U/L ALT (9-52) U/L Alkaline Phosphatase (38-126) U/L NT-Pro-B Natriuret Pep (0-900) pg/mL Total Protein (6.3-8.3) g/dL Albumin (3.5-5.0) g/dL Globulin (2.2-3.9) gm/dL Albumin/Globulin Ratio (1.0-2.1) Triglycerides (0-149) mg/dL Cholesterol (0-199) mg/dL LDL Cholesterol Direct (0-129) mg/dL HDL Cholesterol (30-70) mg/dL Free T4 (0.78-2.19) ng/dL Thyroxine (T4) (5.5-11.0) ug/dL Free T3 pg/mL (2.77-5.27) pg/mL Total T3 (1.49-2.60) nmol/L TSH 3rd Generation (0.46-4.68) mIU/L Cortisol AM Sample (4.46-22.7) ug/dL Urine Color (YELLOW) Urine Clarity (Clear) Urine pH (5.0-8.0) Ur Specific Anna (1.003-1.030) Urine Protein (NEGATIVE) mg/dL Urine Glucose (UA) (Normal) mg/dL Urine Ketones (NEGATIVE) mg/dL Urine Blood (NEGATIVE) Urine Nitrate (NEGATIVE) Urine Bilirubin (NEGATIVE) Urine Urobilinogen (0.2-1.0) mg/dL Ur Leukocyte Esterase (Negative) Estefania/uL Urine WBC (Auto) (0-5) /hpf Urine RBC (Auto) (0-3) /hpf Ur Squamous Epith Cells (0-5) /hpf Urine Osmolality 75 L (300-1000) mosm/kg Ur Random Creatinine mg/dL Ur Random Sodium mmol/L Ur Random Potassium mmol/L Ur Random Urea Nitrogn mg/dL 09/30/18 09/30/18 09/30/18 Range/Units 09:50 08:27 08:25 WBC (4.8-10.8) K/uL RBC (3.80-5.20) Mil/uL Hgb (11.0-16.0) g/dL Hct (34.0-47.0) % MCV (81.0-99.0) fL MCH (27.0-31.0) pg MCHC (33.0-37.0) g/dL RDW (11.5-14.5) % Plt Count (130-400) K/uL MPV (7.2-11.7) fL Neut % (Auto) (50.0-75.0) % Lymph % (Auto) (20.0-40.0) % Gage % (Auto) (0.0-10.0) % Eos % (Auto) (0.0-4.0) % Baso % (Auto) (0.0-2.0) % Neut # (Auto) (1.8-7.0) K/uL Lymph # (Auto) (1.0-4.3) K/uL Gage # (Auto) (0.0-0.8) K/uL Eos # (Auto) (0.0-0.7) K/uL Baso # (Auto) (0.0-0.2) K/uL Neutrophils % (Manual) (50-75) % Band Neutrophils % (0-2) % Lymphocytes % (Manual) (20-40) % Monocytes % (Manual) (0-10) % Platelet Estimate (NORMAL) RBC Morphology Sodium 116 L* (132-148) mmol/L Potassium 4.5 (3.6-5.2) mmol/L Chloride 86 L (98-107) mmol/L Carbon Dioxide 24 (22-30) mmol/L Anion Gap 11 (10-20) BUN 11 (7-17) mg/dL Creatinine 0.6 L (0.7-1.2) mg/dL Est GFR ( Amer) > 60 Est GFR (Non-Af Amer) > 60 Random Glucose 95 (65-105) mg/dL Serum Osmolality (272-300) mosm/kg Uric Acid (2.2-7.5) mg/dL Calcium 8.1 L (8.6-10.4) mg/dl Phosphorus (2.5-4.5) mg/dL Magnesium (1.6-2.3) mg/dL Total Bilirubin (0.2-1.3) mg/dL AST (14-36) U/L ALT (9-52) U/L Alkaline Phosphatase (38-126) U/L NT-Pro-B Natriuret Pep (0-900) pg/mL Total Protein (6.3-8.3) g/dL Albumin (3.5-5.0) g/dL Globulin (2.2-3.9) gm/dL Albumin/Globulin Ratio (1.0-2.1) Triglycerides (0-149) mg/dL Cholesterol (0-199) mg/dL LDL Cholesterol Direct (0-129) mg/dL HDL Cholesterol (30-70) mg/dL Free T4 (0.78-2.19) ng/dL Thyroxine (T4) (5.5-11.0) ug/dL Free T3 pg/mL (2.77-5.27) pg/mL Total T3 (1.49-2.60) nmol/L TSH 3rd Generation (0.46-4.68) mIU/L Cortisol AM Sample (4.46-22.7) ug/dL Urine Color Straw (YELLOW) Urine Clarity Hazy (Clear) Urine pH 7.0 (5.0-8.0) Ur Specific Anna 1.001 L (1.003-1.030) Urine Protein Negative (NEGATIVE) mg/dL Urine Glucose (UA) Normal (Normal) mg/dL Urine Ketones Negative (NEGATIVE) mg/dL Urine Blood 1+ H (NEGATIVE) Urine Nitrate Negative (NEGATIVE) Urine Bilirubin Negative (NEGATIVE) Urine Urobilinogen Normal (0.2-1.0) mg/dL Ur Leukocyte Esterase Trace (Negative) Estefania/uL Urine WBC (Auto) < 1 (0-5) /hpf Urine RBC (Auto) < 1 (0-3) /hpf Ur Squamous Epith Cells 1 (0-5) /hpf Urine Osmolality 68 L (300-1000) mosm/kg Ur Random Creatinine mg/dL Ur Random Sodium mmol/L Ur Random Potassium mmol/L Ur Random Urea Nitrogn mg/dL 06/19/18 06/19/18 06/19/18 Range/Units 06:23 06:23 06:23 WBC 15.0 H (4.8-10.8) K/uL RBC 4.04 (3.80-5.20) Mil/uL Hgb 12.0 (11.0-16.0) g/dL Hct 33.6 L (34.0-47.0) % MCV 83.1 (81.0-99.0) fL MCH 29.7 (27.0-31.0) pg MCHC 35.7 (33.0-37.0) g/dL RDW 14.2 (11.5-14.5) % Plt Count 261 (130-400) K/uL MPV 7.7 (7.2-11.7) fL Neut % (Auto) 82.5 H (50.0-75.0) % Lymph % (Auto) 7.9 L (20.0-40.0) % Gage % (Auto) 9.4 (0.0-10.0) % Eos % (Auto) 0.1 (0.0-4.0) % Baso % (Auto) 0.1 (0.0-2.0) % Neut # (Auto) 12.3 H (1.8-7.0) K/uL Lymph # (Auto) 1.2 (1.0-4.3) K/uL Gage # (Auto) 1.4 H (0.0-0.8) K/uL Eos # (Auto) 0.0 (0.0-0.7) K/uL Baso # (Auto) 0.0 (0.0-0.2) K/uL Neutrophils % (Manual) 82 H (50-75) % Band Neutrophils % 1 (0-2) % Lymphocytes % (Manual) 8 L (20-40) % Monocytes % (Manual) 9 (0-10) % Platelet Estimate Normal (NORMAL) RBC Morphology Normal Sodium 109 L* (132-148) mmol/L Potassium 4.5 (3.6-5.2) mmol/L Chloride 79 L (98-107) mmol/L Carbon Dioxide 21 L (22-30) mmol/L Anion Gap 14 (10-20) BUN 10 (7-17) mg/dL Creatinine 0.6 L (0.7-1.2) mg/dL Est GFR ( Amer) > 60 Est GFR (Non-Af Amer) > 60 Random Glucose 103 (65-105) mg/dL Serum Osmolality (272-300) mosm/kg Uric Acid 2.4 (2.2-7.5) mg/dL Calcium 7.6 L (8.6-10.4) mg/dl Phosphorus 1.7 L (2.5-4.5) mg/dL Magnesium 2.3 (1.6-2.3) mg/dL Total Bilirubin 0.7 (0.2-1.3) mg/dL AST 97 H (14-36) U/L ALT 43 (9-52) U/L Alkaline Phosphatase 49 (38-126) U/L NT-Pro-B Natriuret Pep (0-900) pg/mL Total Protein 6.5 (6.3-8.3) g/dL Albumin 3.7 (3.5-5.0) g/dL Globulin 2.7 (2.2-3.9) gm/dL Albumin/Globulin Ratio 1.4 (1.0-2.1) Triglycerides (0-149) mg/dL Cholesterol (0-199) mg/dL LDL Cholesterol Direct (0-129) mg/dL HDL Cholesterol (30-70) mg/dL Free T4 (0.78-2.19) ng/dL Thyroxine (T4) (5.5-11.0) ug/dL Free T3 pg/mL (2.77-5.27) pg/mL Total T3 (1.49-2.60) nmol/L TSH 3rd Generation (0.46-4.68) mIU/L Cortisol AM Sample 21.0 (4.46-22.7) ug/dL Urine Color (YELLOW) Urine Clarity (Clear) Urine pH (5.0-8.0) Ur Specific Anna (1.003-1.030) Urine Protein (NEGATIVE) mg/dL Urine Glucose (UA) (Normal) mg/dL Urine Ketones (NEGATIVE) mg/dL Urine Blood (NEGATIVE) Urine Nitrate (NEGATIVE) Urine Bilirubin (NEGATIVE) Urine Urobilinogen (0.2-1.0) mg/dL Ur Leukocyte Esterase (Negative) Estefania/uL Urine WBC (Auto) (0-5) /hpf Urine RBC (Auto) (0-3) /hpf Ur Squamous Epith Cells (0-5) /hpf Urine Osmolality (300-1000) mosm/kg Ur Random Creatinine mg/dL Ur Random Sodium mmol/L Ur Random Potassium mmol/L Ur Random Urea Nitrogn mg/dL 06/18/18 06/18/18 06/18/18 Range/Units 23:12 19:26 19:26 WBC (4.8-10.8) K/uL RBC (3.80-5.20) Mil/uL Hgb (11.0-16.0) g/dL Hct (34.0-47.0) % MCV (81.0-99.0) fL MCH (27.0-31.0) pg MCHC (33.0-37.0) g/dL RDW (11.5-14.5) % Plt Count (130-400) K/uL MPV (7.2-11.7) fL Neut % (Auto) (50.0-75.0) % Lymph % (Auto) (20.0-40.0) % Gage % (Auto) (0.0-10.0) % Eos % (Auto) (0.0-4.0) % Baso % (Auto) (0.0-2.0) % Neut # (Auto) (1.8-7.0) K/uL Lymph # (Auto) (1.0-4.3) K/uL Gage # (Auto) (0.0-0.8) K/uL Eos # (Auto) (0.0-0.7) K/uL Baso # (Auto) (0.0-0.2) K/uL Neutrophils % (Manual) (50-75) % Band Neutrophils % (0-2) % Lymphocytes % (Manual) (20-40) % Monocytes % (Manual) (0-10) % Platelet Estimate (NORMAL) RBC Morphology Sodium 108 L* (132-148) mmol/L Potassium 3.6 (3.6-5.2) mmol/L Chloride 71 L (98-107) mmol/L Carbon Dioxide 26 (22-30) mmol/L Anion Gap 15 (10-20) BUN 10 (7-17) mg/dL Creatinine 0.6 L (0.7-1.2) mg/dL Est GFR ( Amer) > 60 Est GFR (Non-Af Amer) > 60 Random Glucose 145 H (65-105) mg/dL Serum Osmolality (272-300) mosm/kg Uric Acid (2.2-7.5) mg/dL Calcium 7.9 L (8.6-10.4) mg/dl Phosphorus (2.5-4.5) mg/dL Magnesium (1.6-2.3) mg/dL Total Bilirubin (0.2-1.3) mg/dL AST (14-36) U/L ALT (9-52) U/L Alkaline Phosphatase (38-126) U/L NT-Pro-B Natriuret Pep (0-900) pg/mL Total Protein (6.3-8.3) g/dL Albumin (3.5-5.0) g/dL Globulin (2.2-3.9) gm/dL Albumin/Globulin Ratio (1.0-2.1) Triglycerides (0-149) mg/dL Cholesterol (0-199) mg/dL LDL Cholesterol Direct (0-129) mg/dL HDL Cholesterol (30-70) mg/dL Free T4 (0.78-2.19) ng/dL Thyroxine (T4) (5.5-11.0) ug/dL Free T3 pg/mL (2.77-5.27) pg/mL Total T3 (1.49-2.60) nmol/L TSH 3rd Generation (0.46-4.68) mIU/L Cortisol AM Sample (4.46-22.7) ug/dL Urine Color (YELLOW) Urine Clarity (Clear) Urine pH (5.0-8.0) Ur Specific Anna (1.003-1.030) Urine Protein (NEGATIVE) mg/dL Urine Glucose (UA) (Normal) mg/dL Urine Ketones (NEGATIVE) mg/dL Urine Blood (NEGATIVE) Urine Nitrate (NEGATIVE) Urine Bilirubin (NEGATIVE) Urine Urobilinogen (0.2-1.0) mg/dL Ur Leukocyte Esterase (Negative) Estefania/uL Urine WBC (Auto) (0-5) /hpf Urine RBC (Auto) (0-3) /hpf Ur Squamous Epith Cells (0-5) /hpf Urine Osmolality 485 (300-1000) mosm/kg Ur Random Creatinine 53.4 mg/dL Ur Random Sodium 71 mmol/L Ur Random Potassium 67.3 mmol/L Ur Random Urea Nitrogn 498 mg/dL 06/18/18 06/18/18 Range/Units 18:53 18:53 WBC (4.8-10.8) K/uL RBC (3.80-5.20) Mil/uL Hgb (11.0-16.0) g/dL Hct (34.0-47.0) % MCV (81.0-99.0) fL MCH (27.0-31.0) pg MCHC (33.0-37.0) g/dL RDW (11.5-14.5) % Plt Count (130-400) K/uL MPV (7.2-11.7) fL Neut % (Auto) (50.0-75.0) % Lymph % (Auto) (20.0-40.0) % Gage % (Auto) (0.0-10.0) % Eos % (Auto) (0.0-4.0) % Baso % (Auto) (0.0-2.0) % Neut # (Auto) (1.8-7.0) K/uL Lymph # (Auto) (1.0-4.3) K/uL Gage # (Auto) (0.0-0.8) K/uL Eos # (Auto) (0.0-0.7) K/uL Baso # (Auto) (0.0-0.2) K/uL Neutrophils % (Manual) (50-75) % Band Neutrophils % (0-2) % Lymphocytes % (Manual) (20-40) % Monocytes % (Manual) (0-10) % Platelet Estimate (NORMAL) RBC Morphology Sodium 108 L* (132-148) mmol/L Potassium 2.4 L* (3.6-5.2) mmol/L Chloride 68 L (98-107) mmol/L Carbon Dioxide 27 (22-30) mmol/L Anion Gap 15 (10-20) BUN 11 (7-17) mg/dL Creatinine 0.6 L (0.7-1.2) mg/dL Est GFR ( Amer) > 60 Est GFR (Non-Af Amer) > 60 Random Glucose 154 H (65-105) mg/dL Serum Osmolality 229 L (272-300) mosm/kg Uric Acid (2.2-7.5) mg/dL Calcium 8.4 L (8.6-10.4) mg/dl Phosphorus (2.5-4.5) mg/dL Magnesium (1.6-2.3) mg/dL Total Bilirubin (0.2-1.3) mg/dL AST (14-36) U/L ALT (9-52) U/L Alkaline Phosphatase (38-126) U/L NT-Pro-B Natriuret Pep 915 H (0-900) pg/mL Total Protein (6.3-8.3) g/dL Albumin (3.5-5.0) g/dL Globulin (2.2-3.9) gm/dL Albumin/Globulin Ratio (1.0-2.1) Triglycerides 43 (0-149) mg/dL Cholesterol 186 (0-199) mg/dL LDL Cholesterol Direct 54 (0-129) mg/dL HDL Cholesterol 98 H (30-70) mg/dL Free T4 1.49 (0.78-2.19) ng/dL Thyroxine (T4) 10.0 (5.5-11.0) ug/dL Free T3 pg/mL 2.05 L (2.77-5.27) pg/mL Total T3 0.963 L (1.49-2.60) nmol/L TSH 3rd Generation 4.54 (0.46-4.68) mIU/L Cortisol AM Sample (4.46-22.7) ug/dL Urine Color (YELLOW) Urine Clarity (Clear) Urine pH (5.0-8.0) Ur Specific Anna (1.003-1.030) Urine Protein (NEGATIVE) mg/dL Urine Glucose (UA) (Normal) mg/dL Urine Ketones (NEGATIVE) mg/dL Urine Blood (NEGATIVE) Urine Nitrate (NEGATIVE) Urine Bilirubin (NEGATIVE) Urine Urobilinogen (0.2-1.0) mg/dL Ur Leukocyte Esterase (Negative) Estefania/uL Urine WBC (Auto) (0-5) /hpf Urine RBC (Auto) (0-3) /hpf Ur Squamous Epith Cells (0-5) /hpf Urine Osmolality (300-1000) mosm/kg Ur Random Creatinine mg/dL Ur Random Sodium mmol/L Ur Random Potassium mmol/L Ur Random Urea Nitrogn mg/dL Laboratory Results - last 24 hr 06/18/18 06/18/18 06/18/18 18:53 18:53 19:26 WBC RBC Hgb Hct MCV MCH MCHC RDW Plt Count MPV Neut % (Auto) Lymph % (Auto) Gage % (Auto) Eos % (Auto) Baso % (Auto) Neut # (Auto) Lymph # (Auto) Gage # (Auto) Eos # (Auto) Baso # (Auto) Neutrophils % (Manual) Band Neutrophils % Lymphocytes % (Manual) Monocytes % (Manual) Platelet Estimate RBC Morphology Sodium 108 L* Potassium 2.4 L* Chloride 68 L Carbon Dioxide 27 Anion Gap 15 BUN 11 Creatinine 0.6 L Est GFR ( Amer) > 60 Est GFR (Non-Af Amer) > 60 Random Glucose 154 H Serum Osmolality 229 L Uric Acid Calcium 8.4 L Phosphorus Magnesium Total Bilirubin AST ALT Alkaline Phosphatase NT-Pro-B Natriuret Pep 915 H Total Protein Albumin Globulin Albumin/Globulin Ratio Triglycerides 43 Cholesterol 186 LDL Cholesterol Direct 54 HDL Cholesterol 98 H Free T4 1.49 Thyroxine (T4) 10.0 Free T3 pg/mL 2.05 L Total T3 0.963 L TSH 3rd Generation 4.54 Cortisol AM Sample Urine Color Urine Clarity Urine pH Ur Specific Anna Urine Protein Urine Glucose (UA) Urine Ketones Urine Blood Urine Nitrate Urine Bilirubin Urine Urobilinogen Ur Leukocyte Esterase Urine WBC (Auto) Urine RBC (Auto) Ur Squamous Epith Cells Urine Osmolality 485 Ur Random Creatinine 53.4 Ur Random Sodium 71 Ur Random Potassium Ur Random Urea Nitrogn 498 06/18/18 06/18/18 06/19/18 19:26 23:12 06:23 WBC 15.0 H RBC 4.04 Hgb 12.0 Hct 33.6 L MCV 83.1 MCH 29.7 MCHC 35.7 RDW 14.2 Plt Count 261 MPV 7.7 Neut % (Auto) 82.5 H Lymph % (Auto) 7.9 L Gage % (Auto) 9.4 Eos % (Auto) 0.1 Baso % (Auto) 0.1 Neut # (Auto) 12.3 H Lymph # (Auto) 1.2 Gage # (Auto) 1.4 H Eos # (Auto) 0.0 Baso # (Auto) 0.0 Neutrophils % (Manual) 82 H Band Neutrophils % 1 Lymphocytes % (Manual) 8 L Monocytes % (Manual) 9 Platelet Estimate Normal RBC Morphology Normal Sodium 108 L* Potassium 3.6 Chloride 71 L Carbon Dioxide 26 Anion Gap 15 BUN 10 Creatinine 0.6 L Est GFR ( Amer) > 60 Est GFR (Non-Af Amer) > 60 Random Glucose 145 H Serum Osmolality Uric Acid Calcium 7.9 L Phosphorus Magnesium Total Bilirubin AST ALT Alkaline Phosphatase NT-Pro-B Natriuret Pep Total Protein Albumin Globulin Albumin/Globulin Ratio Triglycerides Cholesterol LDL Cholesterol Direct HDL Cholesterol Free T4 Thyroxine (T4) Free T3 pg/mL Total T3 TSH 3rd Generation Cortisol AM Sample Urine Color Urine Clarity Urine pH Ur Specific Anna Urine Protein Urine Glucose (UA) Urine Ketones Urine Blood Urine Nitrate Urine Bilirubin Urine Urobilinogen Ur Leukocyte Esterase Urine WBC (Auto) Urine RBC (Auto) Ur Squamous Epith Cells Urine Osmolality Ur Random Creatinine Ur Random Sodium Ur Random Potassium 67.3 Ur Random Urea Nitrogn 06/19/18 06/19/18 06/19/18 06:23 06:23 08:25 WBC RBC Hgb Hct MCV MCH MCHC RDW Plt Count MPV Neut % (Auto) Lymph % (Auto) Gage % (Auto) Eos % (Auto) Baso % (Auto) Neut # (Auto) Lymph # (Auto) Gage # (Auto) Eos # (Auto) Baso # (Auto) Neutrophils % (Manual) Band Neutrophils % Lymphocytes % (Manual) Monocytes % (Manual) Platelet Estimate RBC Morphology Sodium 109 L* Potassium 4.5 Chloride 79 L Carbon Dioxide 21 L Anion Gap 14 BUN 10 Creatinine 0.6 L Est GFR ( Amer) > 60 Est GFR (Non-Af Amer) > 60 Random Glucose 103 Serum Osmolality Uric Acid 2.4 Calcium 7.6 L Phosphorus 1.7 L Magnesium 2.3 Total Bilirubin 0.7 AST 97 H ALT 43 Alkaline Phosphatase 49 NT-Pro-B Natriuret Pep Total Protein 6.5 Albumin 3.7 Globulin 2.7 Albumin/Globulin Ratio 1.4 Triglycerides Cholesterol LDL Cholesterol Direct HDL Cholesterol Free T4 Thyroxine (T4) Free T3 pg/mL Total T3 TSH 3rd Generation Cortisol AM Sample 21.0 Urine Color Straw Urine Clarity Hazy Urine pH 7.0 Ur Specific Anna 1.001 L Urine Protein Negative Urine Glucose (UA) Normal Urine Ketones Negative Urine Blood 1+ H Urine Nitrate Negative Urine Bilirubin Negative Urine Urobilinogen Normal Ur Leukocyte Esterase Trace Urine WBC (Auto) < 1 Urine RBC (Auto) < 1 Ur Squamous Epith Cells 1 Urine Osmolality Ur Random Creatinine Ur Random Sodium Ur Random Potassium Ur Random Urea Nitrogn 06/19/18 06/19/18 06/19/18 08:27 09:50 09:50 WBC RBC Hgb Hct MCV MCH MCHC RDW Plt Count MPV Neut % (Auto) Lymph % (Auto) Gage % (Auto) Eos % (Auto) Baso % (Auto) Neut # (Auto) Lymph # (Auto) Gage # (Auto) Eos # (Auto) Baso # (Auto) Neutrophils % (Manual) Band Neutrophils % Lymphocytes % (Manual) Monocytes % (Manual) Platelet Estimate RBC Morphology Sodium 116 L* Potassium 4.5 Chloride 86 L Carbon Dioxide 24 Anion Gap 11 BUN 11 Creatinine 0.6 L Est GFR ( Amer) > 60 Est GFR (Non-Af Amer) > 60 Random Glucose 95 Serum Osmolality Uric Acid Calcium 8.1 L Phosphorus Magnesium Total Bilirubin AST ALT Alkaline Phosphatase NT-Pro-B Natriuret Pep Total Protein Albumin Globulin Albumin/Globulin Ratio Triglycerides Cholesterol LDL Cholesterol Direct HDL Cholesterol Free T4 Thyroxine (T4) Free T3 pg/mL Total T3 TSH 3rd Generation Cortisol AM Sample Urine Color Urine Clarity Urine pH Ur Specific Anna Urine Protein Urine Glucose (UA) Urine Ketones Urine Blood Urine Nitrate Urine Bilirubin Urine Urobilinogen Ur Leukocyte Esterase Urine WBC (Auto) Urine RBC (Auto) Ur Squamous Epith Cells Urine Osmolality 68 L 75 L Ur Random Creatinine Ur Random Sodium Ur Random Potassium Ur Random Urea Nitrogn 06/19/18 06/19/18 13:26 16:33 WBC RBC Hgb Hct MCV MCH MCHC RDW Plt Count MPV Neut % (Auto) Lymph % (Auto) Gage % (Auto) Eos % (Auto) Baso % (Auto) Neut # (Auto) Lymph # (Auto) Gage # (Auto) Eos # (Auto) Baso # (Auto) Neutrophils % (Manual) Band Neutrophils % Lymphocytes % (Manual) Monocytes % (Manual) Platelet Estimate RBC Morphology Sodium 121 L 122 L Potassium 4.2 4.1 Chloride 88 L 88 L Carbon Dioxide 23 24 Anion Gap 13 14 BUN 10 9 Creatinine 0.7 0.6 L Est GFR ( Amer) > 60 > 60 Est GFR (Non-Af Amer) > 60 > 60 Random Glucose 89 111 H Serum Osmolality Uric Acid Calcium 8.1 L 8.5 L Phosphorus Magnesium Total Bilirubin AST ALT Alkaline Phosphatase NT-Pro-B Natriuret Pep Total Protein Albumin Globulin Albumin/Globulin Ratio Triglycerides Cholesterol LDL Cholesterol Direct HDL Cholesterol Free T4 Thyroxine (T4) Free T3 pg/mL Total T3 TSH 3rd Generation Cortisol AM Sample Urine Color Urine Clarity Urine pH Ur Specific Anna Urine Protein Urine Glucose (UA) Urine Ketones Urine Blood Urine Nitrate Urine Bilirubin Urine Urobilinogen Ur Leukocyte Esterase Urine WBC (Auto) Urine RBC (Auto) Ur Squamous Epith Cells Urine Osmolality Ur Random Creatinine Ur Random Sodium Ur Random Potassium Ur Random Urea Nitrogn Critical Care Progress Note - Nutrition Nutrition: Nutrition Category Date Time Status NPO Diet [DIET] Diets 06/19/18 Breakfast Active Attending/Attestation - Attestation I have personally seen and examined this patient.: Yes I have fully participated in the care of the patient.: Yes I have reviewed all pertinent clinical information: Yes Notes (Text): 06/19/18 16:58 Patient awake but pleasantly confused, mentioned she is 84 yrs old, didn't know current month and that she is in her house, vitals maintained, urine osm which was high yesterday today became very low, and patient started to void large volume of urine, ivf stopped this morning and later started on D5w at high rate to match up her urine out put. Na lisset form 109 to 122, will order DDAVP to reverse rapid correction of the sodium and control correct, in expectation ADH role to stablize one volume status improved and normal sodium level achieved gradually. Records of recent blood work from other hospital may help, gi and dvt prophylaxis. <Baljit Cyr - Last Filed: 06/19/18 20:57> CCU Subjective - Physician Review Subjective (Free Text): 06/19/18 20:45 Seen and examined at bedside in ICU. Overnight, continued on NS 75cc/hr, but sodium only increased from 108 to 109. Did not sleep overnight, mildly delirious this AM (oriented to self, knows her age, but thinks at home and doesn't know the month). No reported neurologic symptoms, no reported seizures. CCU Objective - Vital Signs / Intake & Output Vital Signs (Last 4 hours): Vital Signs Temp Pulse Resp BP Pulse Ox 06/19/18 06:43 82 22 145/39 L 97 06/19/18 05:41 72 15 110/52 L 94 L 06/19/18 04:41 69 14 133/58 L 83 L 06/19/18 04:00 97.6 F 06/19/18 03:41 77 19 129/62 Intake and Output (Last 8hrs): Intake & Output 06/18/18 06/19/18 06/19/18 22:59 06:59 14:59 Intake Total 575 1125 Output Total 0 0 Balance 575 1125 Weight 62.5 kg Intake: Intake, IV Amount 575 1125 Left Antecubital 275 1025 Left Distal Port 300 100 Antecubital Output: Urine 0 0 Urine, Voided 0 0 - Physical Exam Head: Positive for: Atraumatic, Normocephalic Pupils: Negative for: Non-Reactive, Pinpoint Extroacular Muscles: Positive for: EOMI Conjunctiva: Positive for: Normal. Negative for: Injected, Icteric Mouth: Positive for: Moist Mucous Membranes, Normal Tounge. Negative for: Drooling Nose (External): Positive for: Atraumatic. Negative for: Abrasion, Contusion, Laceration Nose (Internal): Positive for: No Active Bleeding. Negative for: Epistaxis Neck: Positive for: Normal Range of Motion, Trachea Midline. Negative for: JVD Respiratory/Chest: Positive for: Clear to Auscultation, Good Air Exchange. Negative for: Respiratory Distress, Accessory Muscle Use, Wheezes, Decreased Breath Sounds, Rales, Rhonchi Cardiovascular: Positive for: Regular Rate and Rhythm, Normal S1, S2, Peripheal Pulses Present. Negative for: Murmurs, Irregular Rhythm, Tachycardic, Bradycardic Abdomen: Positive for: Normal Bowel Sounds. Negative for: Tenderness, Distention Upper Extremity: Positive for: Normal Inspection, Normal ROM, NORMAL PULSES. Negative for: Cyanosis, Edema, Tenderness, Swelling, Erythema, Deformity Lower Extremity: Positive for: Normal Inspection, NORMAL PULSES, Normal ROM. Negative for: Edema, CALF TENDERNESS, Cyanosis, Tenderness, Swelling, Erythema, Deformity Neurological: Positive for: GCS=15, Speech Normal, Motor Func Grossly Intact Skin: Positive for: Warm, Dry, Normal Color. Negative for: Rashes Psychiatric: Positive for: Other (awake and alert, but delirious, thinks at home, oriented only to self) - Medications Active Medications: Active Medications Generic Name Dose Route Start Last Admin Trade Name Freq PRN Reason Stop Dose Admin Amlodipine Besylate 5 mg 06/18/18 17:30 06/18/18 17:38 Norvasc PO 5 mg DAILY SHARI Administration Enoxaparin Sodium 30 mg 06/19/18 10:00 Lovenox SC DAILY SHARI Sodium Chloride 1,000 mls @ 75 mls/hr 06/18/18 17:15 06/19/18 07:07 Sodium Chloride 0.9% IV Not Given .[id number] SHARI Sodium Chloride 500 mls @ 20 mls/hr 06/19/18 07:09 Hypertonic Saline 3% IV 06/20/18 07:08 .Q24H ONE Ondansetron HCl 4 mg 06/18/18 17:17 Zofran Inj IVP Q6 PRN Nausea/Vomiting Pantoprazole Sodium 20 mg 06/19/18 10:00 Protonix Ec Tab PO DAILY SHARI Potassium Chloride 40 meq 06/18/18 19:45 06/19/18 01:45 K-Dur 20 Meq Er Tab PO 06/19/18 13:46 40 meq Q6H SHARI Administration - Patient Studies Lab Studies: Lab Studies 06/19/18 06/19/18 06/18/18 Range/Units 06:23 06:23 23:12 WBC 15.0 H (4.8-10.8) K/uL RBC 4.04 (3.80-5.20) Mil/uL Hgb 12.0 (11.0-16.0) g/dL Hct 33.6 L (34.0-47.0) % MCV 83.1 (81.0-99.0) fL MCH 29.7 (27.0-31.0) pg MCHC 35.7 (33.0-37.0) g/dL RDW 14.2 (11.5-14.5) % Plt Count 261 (130-400) K/uL MPV 7.7 (7.2-11.7) fL Neut % (Auto) 82.5 H (50.0-75.0) % Lymph % (Auto) 7.9 L (20.0-40.0) % Gage % (Auto) 9.4 (0.0-10.0) % Eos % (Auto) 0.1 (0.0-4.0) % Baso % (Auto) 0.1 (0.0-2.0) % Neut # (Auto) 12.3 H (1.8-7.0) K/uL Lymph # (Auto) 1.2 (1.0-4.3) K/uL Gage # (Auto) 1.4 H (0.0-0.8) K/uL Eos # (Auto) 0.0 (0.0-0.7) K/uL Baso # (Auto) 0.0 (0.0-0.2) K/uL Neutrophils % (Manual) (50-75) % Band Neutrophils % (0-2) % Lymphocytes % (Manual) (20-40) % Monocytes % (Manual) (0-10) % Platelet Estimate (NORMAL) RBC Morphology Sodium 109 L* 108 L* (132-148) mmol/L Potassium 4.5 3.6 (3.6-5.2) mmol/L Chloride 79 L 71 L (98-107) mmol/L Carbon Dioxide 21 L 26 (22-30) mmol/L Anion Gap 14 15 (10-20) BUN 10 10 (7-17) mg/dL Creatinine 0.6 L 0.6 L (0.7-1.2) mg/dL Est GFR ( Amer) > 60 > 60 Est GFR (Non-Af Amer) > 60 > 60 Random Glucose 103 145 H (65-105) mg/dL Serum Osmolality (272-300) mosm/kg Uric Acid 2.4 (2.2-7.5) mg/dL Calcium 7.6 L 7.9 L (8.6-10.4) mg/dl Phosphorus 1.7 L (2.5-4.5) mg/dL Magnesium 2.3 (1.6-2.3) mg/dL Total Bilirubin 0.7 (0.2-1.3) mg/dL AST 97 H (14-36) U/L ALT 43 (9-52) U/L Alkaline Phosphatase 49 (38-126) U/L NT-Pro-B Natriuret Pep (0-900) pg/mL Total Protein 6.5 (6.3-8.3) g/dL Albumin 3.7 (3.5-5.0) g/dL Globulin 2.7 (2.2-3.9) gm/dL Albumin/Globulin Ratio 1.4 (1.0-2.1) Triglycerides (0-149) mg/dL Cholesterol (0-199) mg/dL LDL Cholesterol Direct (0-129) mg/dL HDL Cholesterol (30-70) mg/dL Lipase (23-300) U/L Free T4 (0.78-2.19) ng/dL Thyroxine (T4) (5.5-11.0) ug/dL Free T3 pg/mL (2.77-5.27) pg/mL Total T3 (1.49-2.60) nmol/L TSH 3rd Generation (0.46-4.68) mIU/L Urine Osmolality (300-1000) mosm/kg Ur Random Creatinine mg/dL Ur Random Sodium mmol/L Ur Random Potassium mmol/L Ur Random Urea Nitrogn mg/dL 06/18/18 06/18/18 06/18/18 Range/Units 19:26 19:26 18:53 WBC (4.8-10.8) K/uL RBC (3.80-5.20) Mil/uL Hgb (11.0-16.0) g/dL Hct (34.0-47.0) % MCV (81.0-99.0) fL MCH (27.0-31.0) pg MCHC (33.0-37.0) g/dL RDW (11.5-14.5) % Plt Count (130-400) K/uL MPV (7.2-11.7) fL Neut % (Auto) (50.0-75.0) % Lymph % (Auto) (20.0-40.0) % Gage % (Auto) (0.0-10.0) % Eos % (Auto) (0.0-4.0) % Baso % (Auto) (0.0-2.0) % Neut # (Auto) (1.8-7.0) K/uL Lymph # (Auto) (1.0-4.3) K/uL Gage # (Auto) (0.0-0.8) K/uL Eos # (Auto) (0.0-0.7) K/uL Baso # (Auto) (0.0-0.2) K/uL Neutrophils % (Manual) (50-75) % Band Neutrophils % (0-2) % Lymphocytes % (Manual) (20-40) % Monocytes % (Manual) (0-10) % Platelet Estimate (NORMAL) RBC Morphology Sodium (132-148) mmol/L Potassium (3.6-5.2) mmol/L Chloride (98-107) mmol/L Carbon Dioxide (22-30) mmol/L Anion Gap (10-20) BUN (7-17) mg/dL Creatinine (0.7-1.2) mg/dL Est GFR ( Amer) Est GFR (Non-Af Amer) Random Glucose (65-105) mg/dL Serum Osmolality 229 L (272-300) mosm/kg Uric Acid (2.2-7.5) mg/dL Calcium (8.6-10.4) mg/dl Phosphorus (2.5-4.5) mg/dL Magnesium (1.6-2.3) mg/dL Total Bilirubin (0.2-1.3) mg/dL AST (14-36) U/L ALT (9-52) U/L Alkaline Phosphatase (38-126) U/L NT-Pro-B Natriuret Pep (0-900) pg/mL Total Protein (6.3-8.3) g/dL Albumin (3.5-5.0) g/dL Globulin (2.2-3.9) gm/dL Albumin/Globulin Ratio (1.0-2.1) Triglycerides (0-149) mg/dL Cholesterol (0-199) mg/dL LDL Cholesterol Direct (0-129) mg/dL HDL Cholesterol (30-70) mg/dL Lipase (23-300) U/L Free T4 1.49 (0.78-2.19) ng/dL Thyroxine (T4) (5.5-11.0) ug/dL Free T3 pg/mL (2.77-5.27) pg/mL Total T3 (1.49-2.60) nmol/L TSH 3rd Generation (0.46-4.68) mIU/L Urine Osmolality 485 (300-1000) mosm/kg Ur Random Creatinine 53.4 mg/dL Ur Random Sodium 71 mmol/L Ur Random Potassium 67.3 mmol/L Ur Random Urea Nitrogn 498 mg/dL 06/18/18 06/18/18 06/18/18 Range/Units 18:53 15:06 14:36 WBC 12.4 H (4.8-10.8) K/uL RBC 4.25 (3.80-5.20) Mil/uL Hgb 12.5 (11.0-16.0) g/dL Hct 35.0 (34.0-47.0) % MCV 82.6 (81.0-99.0) fL MCH 29.4 (27.0-31.0) pg MCHC 35.6 (33.0-37.0) g/dL RDW 13.9 (11.5-14.5) % Plt Count 271 (130-400) K/uL MPV 7.4 (7.2-11.7) fL Neut % (Auto) 90.5 H (50.0-75.0) % Lymph % (Auto) 6.0 L (20.0-40.0) % Gage % (Auto) 3.4 (0.0-10.0) % Eos % (Auto) 0.0 (0.0-4.0) % Baso % (Auto) 0.1 (0.0-2.0) % Neut # (Auto) 11.2 H (1.8-7.0) K/uL Lymph # (Auto) 0.7 L (1.0-4.3) K/uL Gage # (Auto) 0.4 (0.0-0.8) K/uL Eos # (Auto) 0.0 (0.0-0.7) K/uL Baso # (Auto) 0.0 (0.0-0.2) K/uL Neutrophils % (Manual) 88 H (50-75) % Band Neutrophils % 3 H (0-2) % Lymphocytes % (Manual) 6 L (20-40) % Monocytes % (Manual) 3 (0-10) % Platelet Estimate Normal (NORMAL) RBC Morphology Normal Sodium 108 L* 108 L* (132-148) mmol/L Potassium 2.4 L* 2.9 L (3.6-5.2) mmol/L Chloride 68 L 68 L (98-107) mmol/L Carbon Dioxide 27 28 (22-30) mmol/L Anion Gap 15 15 (10-20) BUN 11 12 (7-17) mg/dL Creatinine 0.6 L 0.6 L (0.7-1.2) mg/dL Est GFR ( Amer) > 60 > 60 Est GFR (Non-Af Amer) > 60 > 60 Random Glucose 154 H 141 H (65-105) mg/dL Serum Osmolality (272-300) mosm/kg Uric Acid (2.2-7.5) mg/dL Calcium 8.4 L 8.6 (8.6-10.4) mg/dl Phosphorus (2.5-4.5) mg/dL Magnesium 1.4 L (1.6-2.3) mg/dL Total Bilirubin 0.9 (0.2-1.3) mg/dL AST 82 H (14-36) U/L ALT 44 (9-52) U/L Alkaline Phosphatase 61 (38-126) U/L NT-Pro-B Natriuret Pep 915 H (0-900) pg/mL Total Protein 7.5 (6.3-8.3) g/dL Albumin 4.5 (3.5-5.0) g/dL Globulin 3.0 (2.2-3.9) gm/dL Albumin/Globulin Ratio 1.5 (1.0-2.1) Triglycerides 43 (0-149) mg/dL Cholesterol 186 (0-199) mg/dL LDL Cholesterol Direct 54 (0-129) mg/dL HDL Cholesterol 98 H (30-70) mg/dL Lipase 64 (23-300) U/L Free T4 (0.78-2.19) ng/dL Thyroxine (T4) 10.0 (5.5-11.0) ug/dL Free T3 pg/mL 2.05 L (2.77-5.27) pg/mL Total T3 0.963 L (1.49-2.60) nmol/L TSH 3rd Generation 4.54 (0.46-4.68) mIU/L Urine Osmolality (300-1000) mosm/kg Ur Random Creatinine mg/dL Ur Random Sodium mmol/L Ur Random Potassium mmol/L Ur Random Urea Nitrogn mg/dL Laboratory Results - last 24 hr 06/18/18 06/18/18 06/18/18 14:36 15:06 18:53 WBC 12.4 H RBC 4.25 Hgb 12.5 Hct 35.0 MCV 82.6 MCH 29.4 MCHC 35.6 RDW 13.9 Plt Count 271 MPV 7.4 Neut % (Auto) 90.5 H Lymph % (Auto) 6.0 L Gage % (Auto) 3.4 Eos % (Auto) 0.0 Baso % (Auto) 0.1 Neut # (Auto) 11.2 H Lymph # (Auto) 0.7 L Gage # (Auto) 0.4 Eos # (Auto) 0.0 Baso # (Auto) 0.0 Neutrophils % (Manual) 88 H Band Neutrophils % 3 H Lymphocytes % (Manual) 6 L Monocytes % (Manual) 3 Platelet Estimate Normal RBC Morphology Normal Sodium 108 L* 108 L* Potassium 2.9 L 2.4 L* Chloride 68 L 68 L Carbon Dioxide 28 27 Anion Gap 15 15 BUN 12 11 Creatinine 0.6 L 0.6 L Est GFR ( Amer) > 60 > 60 Est GFR (Non-Af Amer) > 60 > 60 Random Glucose 141 H 154 H Serum Osmolality Uric Acid Calcium 8.6 8.4 L Phosphorus Magnesium 1.4 L Total Bilirubin 0.9 AST 82 H ALT 44 Alkaline Phosphatase 61 NT-Pro-B Natriuret Pep 915 H Total Protein 7.5 Albumin 4.5 Globulin 3.0 Albumin/Globulin Ratio 1.5 Triglycerides 43 Cholesterol 186 LDL Cholesterol Direct 54 HDL Cholesterol 98 H Lipase 64 Free T4 Thyroxine (T4) 10.0 Free T3 pg/mL 2.05 L Total T3 0.963 L TSH 3rd Generation 4.54 Urine Osmolality Ur Random Creatinine Ur Random Sodium Ur Random Potassium Ur Random Urea Nitrogn 06/18/18 06/18/18 06/18/18 18:53 19:26 19:26 WBC RBC Hgb Hct MCV MCH MCHC RDW Plt Count MPV Neut % (Auto) Lymph % (Auto) Gage % (Auto) Eos % (Auto) Baso % (Auto) Neut # (Auto) Lymph # (Auto) Gage # (Auto) Eos # (Auto) Baso # (Auto) Neutrophils % (Manual) Band Neutrophils % Lymphocytes % (Manual) Monocytes % (Manual) Platelet Estimate RBC Morphology Sodium Potassium Chloride Carbon Dioxide Anion Gap BUN Creatinine Est GFR ( Amer) Est GFR (Non-Af Amer) Random Glucose Serum Osmolality 229 L Uric Acid Calcium Phosphorus Magnesium Total Bilirubin AST ALT Alkaline Phosphatase NT-Pro-B Natriuret Pep Total Protein Albumin Globulin Albumin/Globulin Ratio Triglycerides Cholesterol LDL Cholesterol Direct HDL Cholesterol Lipase Free T4 1.49 Thyroxine (T4) Free T3 pg/mL Total T3 TSH 3rd Generation Urine Osmolality 485 Ur Random Creatinine 53.4 Ur Random Sodium 71 Ur Random Potassium 67.3 Ur Random Urea Nitrogn 498 06/18/18 06/19/18 06/19/18 23:12 06:23 06:23 WBC 15.0 H RBC 4.04 Hgb 12.0 Hct 33.6 L MCV 83.1 MCH 29.7 MCHC 35.7 RDW 14.2 Plt Count 261 MPV 7.7 Neut % (Auto) 82.5 H Lymph % (Auto) 7.9 L Gage % (Auto) 9.4 Eos % (Auto) 0.1 Baso % (Auto) 0.1 Neut # (Auto) 12.3 H Lymph # (Auto) 1.2 Gage # (Auto) 1.4 H Eos # (Auto) 0.0 Baso # (Auto) 0.0 Neutrophils % (Manual) Band Neutrophils % Lymphocytes % (Manual) Monocytes % (Manual) Platelet Estimate RBC Morphology Sodium 108 L* 109 L* Potassium 3.6 4.5 Chloride 71 L 79 L Carbon Dioxide 26 21 L Anion Gap 15 14 BUN 10 10 Creatinine 0.6 L 0.6 L Est GFR ( Amer) > 60 > 60 Est GFR (Non-Af Amer) > 60 > 60 Random Glucose 145 H 103 Serum Osmolality Uric Acid 2.4 Calcium 7.9 L 7.6 L Phosphorus 1.7 L Magnesium 2.3 Total Bilirubin 0.7 AST 97 H ALT 43 Alkaline Phosphatase 49 NT-Pro-B Natriuret Pep Total Protein 6.5 Albumin 3.7 Globulin 2.7 Albumin/Globulin Ratio 1.4 Triglycerides Cholesterol LDL Cholesterol Direct HDL Cholesterol Lipase Free T4 Thyroxine (T4) Free T3 pg/mL Total T3 TSH 3rd Generation Urine Osmolality Ur Random Creatinine Ur Random Sodium Ur Random Potassium Ur Random Urea Nitrogn EKG/Cardiology Studies: Cardiology / EKG Studies 06/18/18 14:12 ELECTROCARDIOGRAM Stat Comment: Mode Of Transportation: Reason For Exam: nausea Review of Systems - Review of Systems Systems not reviewed;Unavailable: Other (delirious) Critical Care Progress Note - Nutrition Nutrition: Nutrition Category Date Time Status NPO Diet [DIET] Diets 06/19/18 Breakfast Active Assessment/Plan - Assessment and Plan (Free Text) Assessment: This is an 83 yo F with PMH of HTN, HLD, and Hypothyroidism who presented to for complaint of R knee pain, but was found to be severely hyponatremia at 108. She was admitted to the ICU for careful repletion of sodium and for close monitoring, given the high seizure risk associated with her hyponatremia. Hyponatremia continues to persist, additional management of sodium as per Nephro. Plan: Neuro: -awake and alert, following all commands appropriately -no reported seizure activity, but high risk due to Na 109 -close monitoring in ICU while carefully repleting sodium, goal is Na increased by 4-6 within 24 hours and not more than 10-12 within 48 hours Pulm: -no respiratory distress in ED, clear breath sounds on exam -CXR negative for lung masses -no indication for supplemental O2 at this time, satting well on room air Cardio: -Hx HTN, but holding Thiazide diuretic due to hypoNa, continue Norvasc 5mg PO daily for HTN while inpatient -now on D5W at 100cc per hour due to rapid Na rise and rapid drop in urine osms -maintaining MAP > 65, no indication for pressor support at this time GI: -NPO except meds due to high seizure risk, want to avoid aspiration -Protonix for GI ppx, Zofran PRN for N/V prevention Renal: -severe hyponatremia persisting at 109, then rapidly increased to 122 now on D5W at 100cc/hr, s/p 1.5L total boluses over 3 hours s/p 1x DDAVP, continue to monitor -Urine osm prior to DDAVP 179, pending recheck -monitor and replete K and Mg as needed -Nephro consulted (Dr. Arevalo), appreciate all recs -Best, strict I's and O's; putting out approx 400cc/hr urine Heme: -Hgb 12 -no signs/sx of bleeding, continue to monitor -SCDs for DVT ppx ID: -WBCs 15, but afebrile -possibly stress rxn 2/2 complaint of knee pain, continue to monitor -cultures ordered, f/u -can monitor off abx for now Dispo: ICU for close monitoring given high seizure risk, now s/p DDAVP for too- rapid Na correction, additional management as per Nephro FEN: NPO, D5W 100cc/hr Access: Peripheral IVs Consults: Nephro, ICU Ppx: Protonix for GI, SCDs for DVT Code Status: unknown, so FULL by default Seen, reviewed, and discussed with attending, Dr. Aguilar
[2018-06-19 08:34] LABS: SQUAMOUS EPITHIAL 1 /hpf (0-5); URINE BILIRUBIN NEGATIVE (NEGATIVE); URINE BLOOD 1+ (NEGATIVE); URINE CLARITY Hazy (Clear); URINE COLOR Straw (YELLOW); URINE GLUCOSE (UA) NORMAL (Normal); URINE LEUKOCYTE ESTERASE TRACE Leu/uL (Negative); URINE PROTEIN NEGATIVE (NEGATIVE); URINE UROBILINOGEN NORMAL mg/dL (0.2-1.0)
[2018-06-19 09:43] LABS: TOTAL CELLS COUNTED 100
[2018-06-19 09:44] LABS: BANDS 1 % (0-2); LYMPHOCYTE 8 % (20-40); MONOCYTE 9 % (0-10); NEUTROPHIL 82 % (50-75); PLATELET ESTIMATE NORMAL (NORMAL)
[2018-06-19] MEDS: Pantoprazole 20 mg EC Tab PO SCH (09:50)
[2018-06-19] MEDS: Enoxaparin 30 mg Syringe SC SCH (09:50)
[2018-06-19 10:50] LABS: BLOOD UREA NITROGEN 11 mg/dL (7-17); CALCIUM 8.1 mg/dl (8.6-10.4); GFR NON-AFRICAN AMERICAN > 60
--- NOTE | 2018-06-19 12:35 | RAD ---
Date of service: 06/18/2018 HISTORY: Vomiting and leg pain. Relevant medical history: Lung cancer COMPARISON: No prior. FINDINGS: LUNGS: No active pulmonary disease. PLEURA: No significant pleural effusion identified, no pneumothorax apparent. CARDIOVASCULAR: No radiographic findings to suggest acute or significant cardiovascular disease. OSSEOUS STRUCTURES: No significant abnormalities. VISUALIZED UPPER ABDOMEN: Normal. OTHER FINDINGS: None. IMPRESSION: No active disease.
[2018-06-19 13:53] LABS: BLOOD UREA NITROGEN 10 mg/dL (7-17); CALCIUM 8.1 mg/dl (8.6-10.4); GFR NON-AFRICAN AMERICAN > 60
[2018-06-19 16:47] LABS: BLOOD UREA NITROGEN 9 mg/dL (7-17); CALCIUM 8.5 mg/dl (8.6-10.4); GFR NON-AFRICAN AMERICAN > 60
[2018-06-19 17:45] LABS: OSMOLALITY,URINE 179 mosm/kg (300-1000)
--- NOTE | 2018-06-19 20:57 | CP.PCM.PN ---
Objective - Vital Signs/Intake and Output Vital Signs (last 24 hours): Temp Pulse Resp BP Pulse Ox 98.2 F 65 16 111/54 L 99 06/19/18 16:00 06/19/18 19:03 06/19/18 19:03 06/19/18 19:03 06/19/18 19:03 Intake and Output: 06/19/18 06/20/18 18:59 06:59 Intake Total 2290 100 Output Total 4450 100 Balance -2160 0 - Medications Medications: Current Medications Amlodipine Besylate (Norvasc) 5 mg PO DAILY [facility] Last Admin: 06/19/18 09:52 Dose: Not Given Enoxaparin Sodium (Lovenox) 30 mg SC DAILY [facility] Last Admin: 06/19/18 09:50 Dose: 30 mg Dextrose (Dextrose 5% In Water 1000 Ml) 1,000 mls @ 100 mls/hr IV .Q10H [facility] Last Admin: 06/19/18 11:05 Dose: 100 mls/hr Ondansetron HCl (Zofran Inj) 4 mg IVP Q6 PRN PRN Reason: Nausea/Vomiting Pantoprazole Sodium (Protonix Ec Tab) 20 mg PO DAILY [facility] Last Admin: 06/19/18 09:50 Dose: 20 mg - Labs Labs: 06/19/18 06:23 06/19/18 16:33
--- NOTE | 2018-06-19 21:33 | CP.PCM.CON ---
History of Present Illness - History of Present Illness History of Present Illness: Full consult under progress note from 06/18/18 Past Patient History - Past Medical History & Family History Past Medical History?: Yes - Past Social History Smoking Status: Never Smoked - CARDIAC Hx Hypertension: Yes - HEENT Other/Comment: Wears glasses - ENDOCRINE/METABOLIC Hx Hypothyroidism: Yes - MUSCULOSKELETAL/RHEUMATOLOGICAL Hx Falls: No - PSYCHIATRIC Hx Substance Use: No - SURGICAL HISTORY Hx Surgeries: No - ANESTHESIA Hx Anesthesia: No Meds Allergies/Adverse Reactions: Allergies Allergy/AdvReac Type Severity Reaction Status Date / Time No Known Allergies Allergy Verified 06/18/18 20:17 - Medications Medications: Current Medications Acetaminophen (Tylenol 325mg Tab) 650 mg PO Q6 PRN PRN Reason: Pain, moderate (4-7) Amlodipine Besylate (Norvasc) 5 mg PO DAILY [facility] Last Admin: 06/19/18 09:52 Dose: Not Given Enoxaparin Sodium (Lovenox) 30 mg SC DAILY [facility] Last Admin: 06/19/18 09:50 Dose: 30 mg Dextrose (Dextrose 5% In Water 1000 Ml) 1,000 mls @ 100 mls/hr IV .Q10H [facility] Last Admin: 06/19/18 11:05 Dose: 100 mls/hr Ondansetron HCl (Zofran Inj) 4 mg IVP Q6 PRN PRN Reason: Nausea/Vomiting Pantoprazole Sodium (Protonix Ec Tab) 20 mg PO DAILY [facility] Last Admin: 06/19/18 09:50 Dose: 20 mg Results - Vital Signs Recent Vital Signs: Last Vital Signs Temp 98.2 F 06/19/18 16:00 Pulse 65 06/19/18 19:03 Resp 16 06/19/18 19:03 BP 111/54 L 06/19/18 19:03 Pulse Ox 99 06/19/18 19:03 - Labs Result Diagrams: 06/19/18 06:23 06/19/18 16:33 Labs: Laboratory Results - last 24 hr 06/18/18 06/19/18 06/19/18 23:12 06:23 06:23 WBC 15.0 H RBC 4.04 Hgb 12.0 Hct 33.6 L MCV 83.1 MCH 29.7 MCHC 35.7 RDW 14.2 Plt Count 261 MPV 7.7 Neut % (Auto) 82.5 H Lymph % (Auto) 7.9 L [place] % (Auto) 9.4 Eos % (Auto) 0.1 Baso % (Auto) 0.1 Neut # (Auto) 12.3 H Lymph # (Auto) 1.2 [place] # (Auto) 1.4 H Eos # (Auto) 0.0 Baso # (Auto) 0.0 Neutrophils % (Manual) 82 H Band Neutrophils % 1 Lymphocytes % (Manual) 8 L Monocytes % (Manual) 9 Platelet Estimate Normal RBC Morphology Normal Sodium 108 L* 109 L* Potassium 3.6 4.5 Chloride 71 L 79 L Carbon Dioxide 26 21 L Anion Gap 15 14 BUN 10 10 Creatinine 0.6 L 0.6 L Est GFR ( Amer) > 60 > 60 Est GFR (Non-Af Amer) > 60 > 60 Random Glucose 145 H 103 Uric Acid 2.4 Calcium 7.9 L 7.6 L Phosphorus 1.7 L Magnesium 2.3 Total Bilirubin 0.7 AST 97 H ALT 43 Alkaline Phosphatase 49 Total Protein 6.5 Albumin 3.7 Globulin 2.7 Albumin/Globulin Ratio 1.4 Cortisol AM Sample Urine Color Urine Clarity Urine pH Ur Specific [place] Urine Protein Urine Glucose (UA) Urine Ketones Urine Blood Urine Nitrate Urine Bilirubin Urine Urobilinogen Ur Leukocyte Esterase Urine WBC (Auto) Urine RBC (Auto) Ur Squamous Epith Cells Urine Osmolality Ur Random Sodium 06/19/18 06/19/18 06/19/18 06:23 08:25 08:27 WBC RBC Hgb Hct MCV MCH MCHC RDW Plt Count MPV Neut % (Auto) Lymph % (Auto) [place] % (Auto) Eos % (Auto) Baso % (Auto) Neut # (Auto) Lymph # (Auto) [place] # (Auto) Eos # (Auto) Baso # (Auto) Neutrophils % (Manual) Band Neutrophils % Lymphocytes % (Manual) Monocytes % (Manual) Platelet Estimate RBC Morphology Sodium Potassium Chloride Carbon Dioxide Anion Gap BUN Creatinine Est GFR ( Amer) Est GFR (Non-Af Amer) Random Glucose Uric Acid Calcium Phosphorus Magnesium Total Bilirubin AST ALT Alkaline Phosphatase Total Protein Albumin Globulin Albumin/Globulin Ratio Cortisol AM Sample 21.0 Urine Color Straw Urine Clarity Hazy Urine pH 7.0 Ur Specific [place] 1.001 L Urine Protein Negative Urine Glucose (UA) Normal Urine Ketones Negative Urine Blood 1+ H Urine Nitrate Negative Urine Bilirubin Negative Urine Urobilinogen Normal Ur Leukocyte Esterase Trace Urine WBC (Auto) < 1 Urine RBC (Auto) < 1 Ur Squamous Epith Cells 1 Urine Osmolality 68 L Ur Random Sodium 06/19/18 06/19/18 06/19/18 09:50 09:50 13:26 WBC RBC Hgb Hct MCV MCH MCHC RDW Plt Count MPV Neut % (Auto) Lymph % (Auto) [place] % (Auto) Eos % (Auto) Baso % (Auto) Neut # (Auto) Lymph # (Auto) [place] # (Auto) Eos # (Auto) Baso # (Auto) Neutrophils % (Manual) Band Neutrophils % Lymphocytes % (Manual) Monocytes % (Manual) Platelet Estimate RBC Morphology Sodium 116 L* 121 L Potassium 4.5 4.2 Chloride 86 L 88 L Carbon Dioxide 24 23 Anion Gap 11 13 BUN 11 10 Creatinine 0.6 L 0.7 Est GFR ( Amer) > 60 > 60 Est GFR (Non-Af Amer) > 60 > 60 Random Glucose 95 89 Uric Acid Calcium 8.1 L 8.1 L Phosphorus Magnesium Total Bilirubin AST ALT Alkaline Phosphatase Total Protein Albumin Globulin Albumin/Globulin Ratio Cortisol AM Sample Urine Color Urine Clarity Urine pH Ur Specific [place] Urine Protein Urine Glucose (UA) Urine Ketones Urine Blood Urine Nitrate Urine Bilirubin Urine Urobilinogen Ur Leukocyte Esterase Urine WBC (Auto) Urine RBC (Auto) Ur Squamous Epith Cells Urine Osmolality 75 L Ur Random Sodium 06/19/18 06/19/18 16:33 17:32 WBC RBC Hgb Hct MCV MCH MCHC RDW Plt Count MPV Neut % (Auto) Lymph % (Auto) [place] % (Auto) Eos % (Auto) Baso % (Auto) Neut # (Auto) Lymph # (Auto) [place] # (Auto) Eos # (Auto) Baso # (Auto) Neutrophils % (Manual) Band Neutrophils % Lymphocytes % (Manual) Monocytes % (Manual) Platelet Estimate RBC Morphology Sodium 122 L Potassium 4.1 Chloride 88 L Carbon Dioxide 24 Anion Gap 14 BUN 9 Creatinine 0.6 L Est GFR ( Amer) > 60 Est GFR (Non-Af Amer) > 60 Random Glucose 111 H Uric Acid Calcium 8.5 L Phosphorus Magnesium Total Bilirubin AST ALT Alkaline Phosphatase Total Protein Albumin Globulin Albumin/Globulin Ratio Cortisol AM Sample Urine Color Urine Clarity Urine pH Ur Specific [place] Urine Protein Urine Glucose (UA) Urine Ketones Urine Blood Urine Nitrate Urine Bilirubin Urine Urobilinogen Ur Leukocyte Esterase Urine WBC (Auto) Urine RBC (Auto) Ur Squamous Epith Cells Urine Osmolality 179 L Ur Random Sodium 32 Assessment & Plan (1) Hyponatremia Status: Acute (2) Hypokalemia Status: Acute (3) HTN (hypertension) Status: Chronic
--- NOTE | 2018-06-19 21:47 | CP.PCM.PN ---
Subjective - Date & Time of Evaluation Date of Evaluation: 06/19/18 Time of Evaluation: 15:00 - Subjective Subjective: Patient reportedly agitated today, trying to pull out IV line; otherwise, denies any sob, nausea/vomiting; polyuric; Objective - Vital Signs/Intake and Output Vital Signs (last 24 hours): Temp Pulse Resp BP Pulse Ox 98.2 F 65 16 111/54 L 99 06/19/18 16:00 06/19/18 19:03 06/19/18 19:03 06/19/18 19:03 06/19/18 19:03 Intake and Output: 06/19/18 06/20/18 18:59 06:59 Intake Total 2290 100 Output Total 4450 100 Balance -2160 0 - Medications Medications: Current Medications Acetaminophen (Tylenol 325mg Tab) 650 mg PO Q6 PRN PRN Reason: Pain, moderate (4-7) Amlodipine Besylate (Norvasc) 5 mg PO DAILY [facility] Last Admin: 06/19/18 09:52 Dose: Not Given Enoxaparin Sodium (Lovenox) 30 mg SC DAILY [facility] Last Admin: 06/19/18 09:50 Dose: 30 mg Dextrose (Dextrose 5% In Water 1000 Ml) 1,000 mls @ 100 mls/hr IV .Q10H [facility] Last Admin: 06/19/18 11:05 Dose: 100 mls/hr Ondansetron HCl (Zofran Inj) 4 mg IVP Q6 PRN PRN Reason: Nausea/Vomiting Pantoprazole Sodium (Protonix Ec Tab) 20 mg PO DAILY [facility] Last Admin: 06/19/18 09:50 Dose: 20 mg - Labs Labs: 06/19/18 06:23 06/19/18 16:33 - Constitutional Appears: Non-toxic, No Acute Distress - Eye Exam Eye Exam: Normal appearance - ENT Exam ENT Exam: Mucous Membranes Moist - Respiratory Exam Respiratory Exam: absent: Respiratory Distress Additional comments: some L sided basal rales; - Cardiovascular Exam Cardiovascular Exam: RRR, +S1, +S2 - GI/Abdominal Exam GI & Abdominal Exam: Soft. absent: Distended, Tenderness - Extremities Exam Additional comments: no leg edema - Neurological Exam Neurological Exam: Alert, Awake - Psychiatric Exam Psychiatric exam: absent: Agitated - Skin Skin Exam: Warm. absent: Cyanosis Assessment and Plan (1) Hyponatremia Assessment & Plan: Severe hyponatremia with history and hospital course consistent with volume depletion as underlying etiology; high urine osm on presentation; given IVF over 12+ hr period with subsequent rapid rise in serum Na and marked drop in urine osm (to maximally low level) along with polyuria is classic presentation of hypovolemic hyponatremia; Patient with water diuresis of ~400 cc/hr, started on D5W at 500 cc/hr to halt further rise in serum Na before being given desmopressin 1 mcg earlier this evening; -Need to decrease serum Na so that overall rise is no more than ~8 meq in 24 hr period; -Repeat bmp and urine osm after desmopressin given; -Continue D5W at 100 cc/hr; -If urine osm not ~300 or more or serum Na continues to rise, give another 1 mcg desmopressin IV; -Continue to check bmp and urine osm q4h; Status: Acute (2) Hypokalemia Assessment & Plan: Resolved but should monitor closely and replenish as needed; Status: Resolved (3) HTN (hypertension) Assessment & Plan: Low BP readings during the day, agree with holding norvasc; may still have some degree of volume depletion but will hold off on giving saline until serum Na stabilized; Status: Chronic - Assessment and Plan (Free Text) Assessment: Critical care time assessing patient multiple times during the day and co- managing patient with CCM team > 60 minutes;
[2018-06-19 21:53] LABS: BLOOD UREA NITROGEN 8 mg/dL (7-17); CALCIUM 7.9 mg/dl (8.6-10.4); GFR NON-AFRICAN AMERICAN > 60
--- NOTE | 2018-06-20 01:38 | PN ---
DATE: 06/19/2018 SUBJECTIVE: The patient is afebrile. Her sodium is improving. She feels better. She has right knee pain. No shortness of breath. No chest pain. Blood cultures and urine cultures are negative at 24 hours. No nausea or vomiting. PHYSICAL EXAMINATION: VITAL SIGNS: Blood pressure 111/54, pulse 65, respiratory rate 16. LUNGS: Bilaterally clear. No rales, no rhonchi. CARDIOVASCULAR SYSTEM: S1, S2, regular. ABDOMEN: Soft. ASSESSMENT: 1. Severe hyponatremia and hypochloremia due to diuretic poor oral intake. 2. Gastritis. 3. Osteoarthritis of right knee. PLAN: Continue IV fluids. Monitor sodium. Slow increase in her sodium level. Monitor the patient. Juan R Bullock MD
[2018-06-20 06:47] LABS: BASO % 0.3 % (0.0-2.0); EOS # 0.1 K/uL (0.0-0.7); EOS % 0.9 % (0.0-4.0); HEMOGLOBIN 12.7 g/dL (11.0-16.0); LYMPH # 1.7 K/uL (1.0-4.3); LYMPH % 19.7 % (20.0-40.0); MEAN CELL VOLUME 83.8 fL (81.0-99.0); MEAN CORPUSCULAR HEMOGLOBIN 29.6 pg (27.0-31.0); MEAN CORPUSCULAR HGB CONC 35.3 g/dL (33.0-37.0); MEAN PLATELET VOLUME 7.8 fL (7.2-11.7); MONO % 11.1 % (0.0-10.0); NEUT # 5.8 K/uL (1.8-7.0); RBC 4.3 Mil/uL (3.80-5.20); RED CELL DISTRIBUTION WIDTH 14.7 % (11.5-14.5); WHITE BLOOD COUNT 8.6 K/uL (4.8-10.8)
[2018-06-20 07:03] LABS: ALB/GLOB RATIO 1.3 (1.0-2.1); ALBUMIN 3.7 g/dL (3.5-5.0); ALT/SGPT 54 U/L (9-52); AST/SGOT 94 U/L (14-36); BLOOD UREA NITROGEN 8 mg/dL (7-17); CALCIUM 7.8 mg/dl (8.6-10.4); GFR NON-AFRICAN AMERICAN > 60
[2018-06-20 09:25] LABS: OSMOLALITY,URINE 432 mosm/kg (300-1000)
--- NOTE | 2018-06-20 10:00 | CP.PCM.PN ---
<Aliza Drew - Last Filed: 06/20/18 14:14> Subjective - Date & Time of Evaluation Date of Evaluation: 06/20/18 Time of Evaluation: 08:00 - Subjective Subjective: Aliza Drew DO, PGY-2: Nephrology Progress note for Dr. Arevalo Patient was seen and examined at bedside. [place] translation services were utilized. Patient reports of some abdominal discomfort. She reports having an appetite and would like to try eating food today. Otherwise, she denies nausea, vomiting, headache, or diarrhea. Objective - Vital Signs/Intake and Output Vital Signs (last 24 hours): Temp Pulse Resp BP Pulse Ox 98 F 76 20 142/57 L 100 06/20/18 08:00 06/20/18 09:00 06/20/18 09:00 06/20/18 08:03 06/20/18 05:00 Intake and Output: 06/20/18 06/20/18 06:59 18:59 Intake Total 390 0 Output Total 770 60 Balance -380 -60 - Medications Medications: Current Medications Acetaminophen (Tylenol 325mg Tab) 650 mg PO Q6 PRN PRN Reason: Pain, moderate (4-7) Last Admin: 06/20/18 04:13 Dose: 650 mg Amlodipine Besylate (Norvasc) 5 mg PO DAILY [facility] Last Admin: 06/19/18 09:52 Dose: Not Given Enoxaparin Sodium (Lovenox) 30 mg SC DAILY [facility] Last Admin: 06/19/18 09:50 Dose: 30 mg Dextrose (Dextrose 5% In Water 1000 Ml) 1,000 mls @ 100 mls/hr IV .Q10H [facility] Stop: 06/20/18 10:46 Last Admin: 06/20/18 09:53 Dose: 100 mls/hr Ondansetron HCl (Zofran Inj) 4 mg IVP Q6 PRN PRN Reason: Nausea/Vomiting Pantoprazole Sodium (Protonix Ec Tab) 20 mg PO DAILY [facility] Last Admin: 06/19/18 09:50 Dose: 20 mg Sodium Chloride (Sodium Chloride Tab) 2 gm PO Q4H [facility] Last Admin: 06/20/18 05:30 Dose: 2 gm - Labs Labs: 06/20/18 06:43 06/20/18 06:43 - Constitutional Appears: Non-toxic - Head Exam Head Exam: ATRAUMATIC, NORMOCEPHALIC - Eye Exam Eye Exam: EOMI, Normal appearance - ENT Exam ENT Exam: Mucous Membranes Dry - Neck Exam Neck Exam: Normal Inspection - Respiratory Exam Respiratory Exam: Clear to Ausculation Bilateral, NORMAL BREATHING PATTERN. absent: Accessory Muscle Use - Cardiovascular Exam Cardiovascular Exam: RRR, +S1, +S2 - GI/Abdominal Exam GI & Abdominal Exam: Soft. absent: Distended, Rebound - Extremities Exam Extremities Exam: Normal Inspection. absent: Calf Tenderness - Back Exam Back Exam: absent: CVA tenderness (L), CVA tenderness (R) - Neurological Exam Neurological Exam: Alert, Awake, Oriented x3 - Psychiatric Exam Psychiatric exam: Normal Affect, Normal Mood - Skin Skin Exam: Dry, Intact, Normal Color, Warm Assessment and Plan - Assessment and Plan (Free Text) Assessment: (1) Hyponatremia Assessment & Plan: Severe hyponatremia with history and hospital course consistent with volume depletion as underlying etiology; high urine osm on presentation; given IVF over 12+ hr period with subsequent rapid rise in serum Na and marked drop in urine osm (to maximally low level) along with polyuria is classic presentation of hypovolemic hyponatremia; - Urine osm at 432 and urine Na 86 this morning with serum Na at 120. Continue with 2Na tablets q4h and continue with bmp and urine osmolality q4h Status: Acute (2) Hypokalemia Assessment & Plan: Resolved but should monitor closely and replenish as needed; Status: Resolved (3) HTN (hypertension) Assessment & Plan: Low BP readings during the day, agree with holding norvasc; may still have some degree of volume depletion but will hold off on giving saline until serum Na stabilized; Status: Chronic <Dennis Arevalo - Last Filed: 06/21/18 08:19> Objective - Vital Signs/Intake and Output Vital Signs (last 24 hours): Temp Pulse Resp BP Pulse Ox 98.3 F 75 14 159/74 H 95 06/21/18 04:00 06/21/18 07:00 06/21/18 07:00 06/21/18 06:17 06/21/18 07:00 Intake and Output: 06/21/18 06/21/18 06:59 18:59 Intake Total 100 0 Output Total 640 50 Balance -540 -50 - Medications Medications: Current Medications Acetaminophen (Tylenol 325mg Tab) 650 mg PO Q6 PRN PRN Reason: Pain, moderate (4-7) Last Admin: 06/20/18 14:34 Dose: 650 mg Enoxaparin Sodium (Lovenox) 30 mg SC DAILY [facility] Last Admin: 06/20/18 10:12 Dose: 30 mg Levothyroxine Sodium (Synthroid) 25 mcg PO DAILY@0630 [facility] Last Admin: 06/21/18 06:01 Dose: 25 mcg Lidocaine (Lidoderm) 1 ea TD DAILY [facility] Last Admin: 06/20/18 17:54 Dose: 1 ea Naproxen (Anaprox Ds) 550 mg PO BID [facility] Last Admin: 06/20/18 18:28 Dose: Not Given Ondansetron HCl (Zofran Inj) 4 mg IVP Q6 PRN PRN Reason: Nausea/Vomiting Pantoprazole Sodium (Protonix Ec Tab) 20 mg PO DAILY [facility] Last Admin: 06/20/18 10:12 Dose: 20 mg Sodium Chloride (Sodium Chloride Tab) 2 gm PO Q4H [facility] Last Admin: 06/21/18 06:00 Dose: 2 gm - Labs Labs: 06/21/18 06:11 06/21/18 06:11 Assessment and Plan (1) Hyponatremia Status: Acute (2) Hypokalemia Status: Resolved (3) HTN (hypertension) Status: Chronic Attending/Attestation - Attestation I have personally seen and examined this patient.: Yes I have fully participated in the care of the patient.: Yes I have reviewed all pertinent clinical information, including history, physical exam and plan: Yes Notes (Text): Patient seen and examined; I agree with the resident's note as above with the following additions/edits: Patient with htn, hypothyroidism, admitted with severe hyponatremia in the setting of severe R lower leg pain, NSAID use, being on thiazide diuretic, and vomiting; Serum Na rising rapidly yesterday with polyuric water diuresis necessitating administration of low dose desmopressin which successfully stopped water diuresis; Informed by CCM team that patient again becoming polyuric this afternoon and serum Na again starting to rise rapidly; additional dose of desmopressin 1 mg given; -continue to monitor bmp and urine osm q4h (drop in urine osm indicates that effect of desmopressin has worn off and should expect rapid rise in serum Na); -goal for safe rate in rise of serum Na 6-8 meq over 24 hr period (targeting mid 120's by tomorrow morning); -continue salt tabs 2 g q4h; -1200 cc PO fluid restriction; Critical care time spent making multiple assessments of patient and discussion with CCM team > 35 minutes;
[2018-06-20] MEDS: Pantoprazole 20 mg EC Tab PO SCH (10:12)
[2018-06-20] MEDS: Enoxaparin 30 mg Syringe SC SCH (10:12)
[2018-06-20 11:43] LABS: BLOOD UREA NITROGEN 8 mg/dL (7-17); CALCIUM 7.9 mg/dl (8.6-10.4); GFR NON-AFRICAN AMERICAN > 60
--- NOTE | 2018-06-20 12:22 | CP.CCUPN ---
Addendum entered and electronically signed by Nathan Botello DO 06/20/18 15:41: f/u 5pm cmp[address] Dr arevalo made aware of current results of cmp and urine osm. following Original Note: <Nathan Botello - Last Filed: 06/20/18 12:36> CCU Subjective - Physician Review Subjective (Free Text): 06/20/18 12:22 Pt seen and examined at bedside. Pt denies any acute events overnight. Pt is hungry and feels tired. denies n/v f/c dizziness loc sweating cp sob 06/20/18 12:36 CCU Objective - Vital Signs / Intake & Output Vital Signs (Last 4 hours): Vital Signs Pulse Resp BP Pulse Ox 06/20/18 12:00 76 14 100 06/20/18 11:16 64 15 118/63 99 06/20/18 11:00 75 27 H 100 06/20/18 10:16 72 13 157/71 H 100 06/20/18 10:00 75 21 100 06/20/18 09:17 73 15 152/71 H 06/20/18 09:00 76 20 Intake and Output (Last 8hrs): Intake & Output 06/19/18 06/20/18 06/20/18 22:59 06:59 14:59 Intake Total 1600 40 150 Output Total 1420 500 210 Balance 180 -460 -60 Intake: Intake, IV Amount 1550 0 100 Left Forearm 1550 0 100 Oral 50 40 50 Output: Urine 1420 500 210 Urethral (Best) 1420 500 210 Other: # Bowel Movements 0 0 - Physical Exam Head: Positive for: Atraumatic, Normocephalic Pupils: Negative for: Non-Reactive, Pinpoint Extroacular Muscles: Positive for: EOMI Conjunctiva: Positive for: Normal. Negative for: Injected, Icteric Mouth: Positive for: Moist Mucous Membranes, Normal Tounge. Negative for: Drooling Nose (External): Positive for: Atraumatic. Negative for: Abrasion, Contusion, Laceration Nose (Internal): Positive for: No Active Bleeding. Negative for: Epistaxis Neck: Positive for: Normal Range of Motion, Trachea Midline. Negative for: JVD Respiratory/Chest: Positive for: Clear to Auscultation, Good Air Exchange. Negative for: Respiratory Distress, Accessory Muscle Use, Wheezes, Decreased [place] ath Sounds, Rales, Rhonchi Cardiovascular: Positive for: Regular Rate and Rhythm, Normal S1, S2, Peripheal Pulses Present. Negative for: Murmurs, Irregular Rhythm, Tachycardic, Bradycardic Abdomen: Positive for: Normal Bowel Sounds. Negative for: Tenderness, Distention Upper Extremity: Positive for: Normal Inspection, Normal ROM, NORMAL PULSES. Negative for: Cyanosis, Edema, Tenderness, Swelling, Erythema, Deformity Lower Extremity: Positive for: Normal Inspection, NORMAL PULSES, Normal ROM. Negative for: Edema, CALF TENDERNESS, Cyanosis, Tenderness, Swelling, Erythema, Deformity Neurological: Positive for: GCS=15, Speech Normal, Motor Func Grossly Intact, Other (alert and oriented x1 to self. cannot recall current city, date, son's bday, president of ) Skin: Positive for: Warm, Dry, Normal Color. Negative for: Rashes Psychiatric: Positive for: Other (awake and alert, but delirious, thinks at home, oriented only to self) - Medications Active Medications: Active Medications Generic Name Dose Route Start Last Admin Trade Name Freq PRN Reason Stop Dose Admin Acetaminophen 650 mg 06/19/18 21:22 06/20/18 04:13 Tylenol 325mg Tab PO 650 mg Q6 PRN Administration Pain, moderate (4-7) Enoxaparin Sodium 30 mg 06/19/18 10:00 06/20/18 10:12 Lovenox SC 30 mg DAILY SHARI Administration Ondansetron HCl 4 mg 06/18/18 17:17 Zofran Inj IVP Q6 PRN Nausea/Vomiting Pantoprazole Sodium 20 mg 06/19/18 10:00 06/20/18 10:12 Protonix Ec Tab PO 20 mg DAILY SHARI Administration Sodium Chloride 2 gm 06/19/18 22:15 06/20/18 05:30 Sodium Chloride Tab PO 2 gm Q4H SHARI Administration - Patient Studies Lab Studies: Microbiology Studies 06/18/18 20:59 Urine Culture - Final Urine,Catheterized No Growth (<1,000 CFU/ML) 06/18/18 17:59 MRSA Culture (Admit) - Final Nose MRSA NOT DETECTED 06/18/18 20:59 Blood Culture - Preliminary Blood-Venous NO GROWTH AFTER 24 HOURS 06/18/18 20:59 Blood Culture - Preliminary Blood-Venous NO GROWTH AFTER 24 HOURS Lab Studies 06/20/18 06/20/18 06/20/18 Range/Units 11:23 11:23 08:52 WBC (4.8-10.8) K/uL RBC (3.80-5.20) Mil/uL Hgb (11.0-16.0) g/dL Hct (34.0-47.0) % MCV (81.0-99.0) fL MCH (27.0-31.0) pg MCHC (33.0-37.0) g/dL RDW (11.5-14.5) % Plt Count (130-400) K/uL MPV (7.2-11.7) fL Neut % (Auto) (50.0-75.0) % Lymph % (Auto) (20.0-40.0) % [place] % (Auto) (0.0-10.0) % Eos % (Auto) (0.0-4.0) % Baso % (Auto) (0.0-2.0) % Neut # (Auto) (1.8-7.0) K/uL Lymph # (Auto) (1.0-4.3) K/uL [place] # (Auto) (0.0-0.8) K/uL Eos # (Auto) (0.0-0.7) K/uL Baso # (Auto) (0.0-0.2) K/uL Sodium 117 L* (132-148) mmol/L Potassium 3.8 (3.6-5.2) mmol/L Chloride 85 L (98-107) mmol/L Carbon Dioxide 23 (22-30) mmol/L Anion Gap 13 (10-20) BUN 8 (7-17) mg/dL Creatinine 0.5 L (0.7-1.2) mg/dL Est GFR ( Amer) > 60 Est GFR (Non-Af Amer) > 60 Random Glucose 94 (65-105) mg/dL Hemoglobin A1c (4.2-6.5) % Calcium 7.9 L (8.6-10.4) mg/dl Phosphorus (2.5-4.5) mg/dL Magnesium (1.6-2.3) mg/dL Total Bilirubin (0.2-1.3) mg/dL AST (14-36) U/L ALT (9-52) U/L Alkaline Phosphatase (38-126) U/L Total Protein (6.3-8.3) g/dL Albumin (3.5-5.0) g/dL Globulin (2.2-3.9) gm/dL Albumin/Globulin Ratio (1.0-2.1) Urine Osmolality 418 432 (300-1000) mosm/kg Ur Random Sodium 86 mmol/L 06/20/18 06/20/18 06/19/18 Range/Units 06:43 06:43 21:31 WBC 8.6 (4.8-10.8) K/uL RBC 4.30 (3.80-5.20) Mil/uL Hgb 12.7 (11.0-16.0) g/dL Hct 36.0 (34.0-47.0) % MCV 83.8 (81.0-99.0) fL MCH 29.6 (27.0-31.0) pg MCHC 35.3 (33.0-37.0) g/dL RDW 14.7 H (11.5-14.5) % Plt Count 267 (130-400) K/uL MPV 7.8 (7.2-11.7) fL Neut % (Auto) 68.0 (50.0-75.0) % Lymph % (Auto) 19.7 L (20.0-40.0) % [place] % (Auto) 11.1 H (0.0-10.0) % Eos % (Auto) 0.9 (0.0-4.0) % Baso % (Auto) 0.3 (0.0-2.0) % Neut # (Auto) 5.8 (1.8-7.0) K/uL Lymph # (Auto) 1.7 (1.0-4.3) K/uL [place] # (Auto) 1.0 H (0.0-0.8) K/uL Eos # (Auto) 0.1 (0.0-0.7) K/uL Baso # (Auto) 0.0 (0.0-0.2) K/uL Sodium 120 L* 118 L* (132-148) mmol/L Potassium 4.0 4.2 (3.6-5.2) mmol/L Chloride 89 L 85 L (98-107) mmol/L Carbon Dioxide 23 26 (22-30) mmol/L Anion Gap 12 12 (10-20) BUN 8 8 (7-17) mg/dL Creatinine 0.6 L 0.6 L (0.7-1.2) mg/dL Est GFR ( Amer) > 60 > 60 Est GFR (Non-Af Amer) > 60 > 60 Random Glucose 87 102 (65-105) mg/dL Hemoglobin A1c (4.2-6.5) % Calcium 7.8 L 7.9 L (8.6-10.4) mg/dl Phosphorus 1.4 L (2.5-4.5) mg/dL Magnesium 1.8 (1.6-2.3) mg/dL Total Bilirubin 0.9 (0.2-1.3) mg/dL AST 94 H (14-36) U/L ALT 54 H D (9-52) U/L Alkaline Phosphatase 54 (38-126) U/L Total Protein 6.5 (6.3-8.3) g/dL Albumin 3.7 (3.5-5.0) g/dL Globulin 2.8 (2.2-3.9) gm/dL Albumin/Globulin Ratio 1.3 (1.0-2.1) Urine Osmolality (300-1000) mosm/kg Ur Random Sodium mmol/L 06/19/18 06/19/18 06/19/18 Range/Units 21:31 21:31 17:32 WBC (4.8-10.8) K/uL RBC (3.80-5.20) Mil/uL Hgb (11.0-16.0) g/dL Hct (34.0-47.0) % MCV (81.0-99.0) fL MCH (27.0-31.0) pg MCHC (33.0-37.0) g/dL RDW (11.5-14.5) % Plt Count (130-400) K/uL MPV (7.2-11.7) fL Neut % (Auto) (50.0-75.0) % Lymph % (Auto) (20.0-40.0) % [place] % (Auto) (0.0-10.0) % Eos % (Auto) (0.0-4.0) % Baso % (Auto) (0.0-2.0) % Neut # (Auto) (1.8-7.0) K/uL Lymph # (Auto) (1.0-4.3) K/uL [place] # (Auto) (0.0-0.8) K/uL Eos # (Auto) (0.0-0.7) K/uL Baso # (Auto) (0.0-0.2) K/uL Sodium (132-148) mmol/L Potassium (3.6-5.2) mmol/L Chloride (98-107) mmol/L Carbon Dioxide (22-30) mmol/L Anion Gap (10-20) BUN (7-17) mg/dL Creatinine (0.7-1.2) mg/dL Est GFR ( Amer) Est GFR (Non-Af Amer) Random Glucose (65-105) mg/dL Hemoglobin A1c 6.0 (4.2-6.5) % Calcium (8.6-10.4) mg/dl Phosphorus (2.5-4.5) mg/dL Magnesium (1.6-2.3) mg/dL Total Bilirubin (0.2-1.3) mg/dL AST (14-36) U/L ALT (9-52) U/L Alkaline Phosphatase (38-126) U/L Total Protein (6.3-8.3) g/dL Albumin (3.5-5.0) g/dL Globulin (2.2-3.9) gm/dL Albumin/Globulin Ratio (1.0-2.1) Urine Osmolality 432 179 L (300-1000) mosm/kg Ur Random Sodium 32 mmol/L 06/19/18 06/19/18 Range/Units 16:33 13:26 WBC (4.8-10.8) K/uL RBC (3.80-5.20) Mil/uL Hgb (11.0-16.0) g/dL Hct (34.0-47.0) % MCV (81.0-99.0) fL MCH (27.0-31.0) pg MCHC (33.0-37.0) g/dL RDW (11.5-14.5) % Plt Count (130-400) K/uL MPV (7.2-11.7) fL Neut % (Auto) (50.0-75.0) % Lymph % (Auto) (20.0-40.0) % [place] % (Auto) (0.0-10.0) % Eos % (Auto) (0.0-4.0) % Baso % (Auto) (0.0-2.0) % Neut # (Auto) (1.8-7.0) K/uL Lymph # (Auto) (1.0-4.3) K/uL [place] # (Auto) (0.0-0.8) K/uL Eos # (Auto) (0.0-0.7) K/uL Baso # (Auto) (0.0-0.2) K/uL Sodium 122 L 121 L (132-148) mmol/L Potassium 4.1 4.2 (3.6-5.2) mmol/L Chloride 88 L 88 L (98-107) mmol/L Carbon Dioxide 24 23 (22-30) mmol/L Anion Gap 14 13 (10-20) BUN 9 10 (7-17) mg/dL Creatinine 0.6 L 0.7 (0.7-1.2) mg/dL Est GFR ( Amer) > 60 > 60 Est GFR (Non-Af Amer) > 60 > 60 Random Glucose 111 H 89 (65-105) mg/dL Hemoglobin A1c (4.2-6.5) % Calcium 8.5 L 8.1 L (8.6-10.4) mg/dl Phosphorus (2.5-4.5) mg/dL Magnesium (1.6-2.3) mg/dL Total Bilirubin (0.2-1.3) mg/dL AST (14-36) U/L ALT (9-52) U/L Alkaline Phosphatase (38-126) U/L Total Protein (6.3-8.3) g/dL Albumin (3.5-5.0) g/dL Globulin (2.2-3.9) gm/dL Albumin/Globulin Ratio (1.0-2.1) Urine Osmolality (300-1000) mosm/kg Ur Random Sodium mmol/L Laboratory Results - last 24 hr 06/19/18 06/19/18 06/19/18 13:26 16:33 17:32 WBC RBC Hgb Hct MCV MCH MCHC RDW Plt Count MPV Neut % (Auto) Lymph % (Auto) [place] % (Auto) Eos % (Auto) Baso % (Auto) Neut # (Auto) Lymph # (Auto) [place] # (Auto) Eos # (Auto) Baso # (Auto) Sodium 121 L 122 L Potassium 4.2 4.1 Chloride 88 L 88 L Carbon Dioxide 23 24 Anion Gap 13 14 BUN 10 9 Creatinine 0.7 0.6 L Est GFR ( Amer) > 60 > 60 Est GFR (Non-Af Amer) > 60 > 60 Random Glucose 89 111 H Hemoglobin A1c Calcium 8.1 L 8.5 L Phosphorus Magnesium Total Bilirubin AST ALT Alkaline Phosphatase Total Protein Albumin Globulin Albumin/Globulin Ratio Urine Osmolality 179 L Ur Random Sodium 32 06/19/18 06/19/18 06/19/18 21:31 21:31 21:31 WBC RBC Hgb Hct MCV MCH MCHC RDW Plt Count MPV Neut % (Auto) Lymph % (Auto) [place] % (Auto) Eos % (Auto) Baso % (Auto) Neut # (Auto) Lymph # (Auto) [place] # (Auto) Eos # (Auto) Baso # (Auto) Sodium 118 L* Potassium 4.2 Chloride 85 L Carbon Dioxide 26 Anion Gap 12 BUN 8 Creatinine 0.6 L Est GFR ( Amer) > 60 Est GFR (Non-Af Amer) > 60 Random Glucose 102 Hemoglobin A1c 6.0 Calcium 7.9 L Phosphorus Magnesium Total Bilirubin AST ALT Alkaline Phosphatase Total Protein Albumin Globulin Albumin/Globulin Ratio Urine Osmolality 432 Ur Random Sodium 06/20/18 06/20/18 06/20/18 06:43 06:43 08:52 WBC 8.6 RBC 4.30 Hgb 12.7 Hct 36.0 MCV 83.8 MCH 29.6 MCHC 35.3 RDW 14.7 H Plt Count 267 MPV 7.8 Neut % (Auto) 68.0 Lymph % (Auto) 19.7 L [place] % (Auto) 11.1 H Eos % (Auto) 0.9 Baso % (Auto) 0.3 Neut # (Auto) 5.8 Lymph # (Auto) 1.7 [place] # (Auto) 1.0 H Eos # (Auto) 0.1 Baso # (Auto) 0.0 Sodium 120 L* Potassium 4.0 Chloride 89 L Carbon Dioxide 23 Anion Gap 12 BUN 8 Creatinine 0.6 L Est GFR ( Amer) > 60 Est GFR (Non-Af Amer) > 60 Random Glucose 87 Hemoglobin A1c Calcium 7.8 L Phosphorus 1.4 L Magnesium 1.8 Total Bilirubin 0.9 AST 94 H ALT 54 H D Alkaline Phosphatase 54 Total Protein 6.5 Albumin 3.7 Globulin 2.8 Albumin/Globulin Ratio 1.3 Urine Osmolality 432 Ur Random Sodium 86 06/20/18 06/20/18 11:23 11:23 WBC RBC Hgb Hct MCV MCH MCHC RDW Plt Count MPV Neut % (Auto) Lymph % (Auto) [place] % (Auto) Eos % (Auto) Baso % (Auto) Neut # (Auto) Lymph # (Auto) [place] # (Auto) Eos # (Auto) Baso # (Auto) Sodium 117 L* Potassium 3.8 Chloride 85 L Carbon Dioxide 23 Anion Gap 13 BUN 8 Creatinine 0.5 L Est GFR ( Amer) > 60 Est GFR (Non-Af Amer) > 60 Random Glucose 94 Hemoglobin A1c Calcium 7.9 L Phosphorus Magnesium Total Bilirubin AST ALT Alkaline Phosphatase Total Protein Albumin Globulin Albumin/Globulin Ratio Urine Osmolality 418 Ur Random Sodium Review of Systems - Constitutional Constitutional: Weakness, Malaise. absent: Fever, Chills, Sweats - EENT Eyes: absent: Change in Vision Ears: UNREMARKABLE Nose/Mouth/Throat: UNREMARKABLE - Breasts Breasts: UNREMARKABLE - Cardiovascular Cardiovascular: absent: Chest Pain, Diaphoresis, Dyspnea, Pain Radiating to Arm/Neck/Jaw, Leg Edema, Lightheadedness, Palpitations - Respiratory Respiratory: absent: Wheezing - Gastrointestinal Gastrointestinal: absent: Diarrhea, Dyspepsia, Dysphagia, Nausea, Vomiting - Genitourinary Genitourinary: absent: Dysuria, Urinary Frequency - Neurological Neurological: Weakness Additional comments: generalized fatigue - Psychiatric Psychiatric: Confusion, Difficulty Concentrating, Memory Loss Critical Care Progress Note - Nutrition Nutrition: Nutrition Category Date Time Status Regular Diet [DIET] Diets 06/20/18 Lunch Active Assessment/Plan - Assessment and Plan (Free Text) Assessment: This is an 83 yo F with PMH of HTN, HLD, and Hypothyroidism who presented to for complaint of R knee pain, but was found to be severely hyponatremia at 108. She was admitted to the ICU for careful repletion of sodium and for close monitoring, given the high seizure risk associated with her hyponatremia. Hyponatremia continues to persist, additional management of sodium as per Nephro. Plan: Neuro: -awake and alert to self, following all commands appropriately -unable to recall date, city, president, son's birthday -no reported seizure activity, but high risk due to today's Na 1119 -close monitoring in ICU while carefully repleting sodium, goal is Na increased by 4-6 within 24 hours and not more than 10-12 within 48 hours Pulm: -no respiratory distress in ED, clear breath sounds on exam -CXR negative for lung masses -no indication for supplemental O2 at this time, satting well on room air Cardio: -Hx HTN, but holding Thiazide diuretic due to hypoNa, -hold Norvasc 5mg PO daily for HTN while inpatient -maintaining MAP > 65, no indication for pressor support at this time GI: -plan to achieve target Na with starting HHD -f/u cmp -Protonix for GI ppx, Zofran PRN for N/V prevention Renal: -severe hyponatremia persisting at 109, then rapidly increased to 122 now on D5W at 100cc/hr, s/p 1.5L total boluses over 3 hours s/p 2x DDAVP, continue to monitor -Na today 119: stable -Urine osm 418 -monitor and replete K and Mg as needed -Nephro consulted (Dr. Arevalo), appreciate all recs -Best, strict I's and O's; putting out approx 400cc/hr urine Heme: -Hgb 12 -no signs/sx of bleeding, continue to monitor -SCDs for DVT ppx ID: -WBCs 15, but afebrile -possibly stress rxn 2/2 complaint of knee pain, continue to monitor -cultures ordered, f/u -can monitor off abx for now GI DVT PPX -Lovenox 30sc q8 -protonix 20mg QD <Desmond Balderas - Last Filed: 06/20/18 19:34> CCU Objective - Vital Signs / Intake & Output Vital Signs (Last 4 hours): Vital Signs Temp Pulse Resp BP 06/20/18 16:16 74 15 143/67 06/20/18 16:00 97.9 F Intake and Output (Last 8hrs): Intake & Output 06/20/18 06/20/18 06/20/18 06:59 14:59 22:59 Intake Total 40 600 Output Total 500 685 725 Balance -460 -85 -725 Weight 146 lb 2.664 oz Intake: Intake, IV Amount 0 100 Left Forearm 0 100 Oral 40 500 Output: Urine 500 685 725 Urethral (Best) 500 685 725 Other: # Bowel Movements 0 - Medications Active Medications: Active Medications Generic Name Dose Route Start Last Admin Trade Name Freq PRN Reason Stop Dose Admin Acetaminophen 650 mg 06/19/18 21:22 06/20/18 14:34 Tylenol 325mg Tab PO 650 mg Q6 PRN Administration Pain, moderate (4-7) Enoxaparin Sodium 30 mg 06/19/18 10:00 06/20/18 10:12 Lovenox SC 30 mg DAILY SHARI Administration Levothyroxine Sodium 25 mcg 06/21/18 06:30 Synthroid PO DAILY@0630 SHARI Lidocaine 1 ea 06/20/18 17:30 06/20/18 17:54 Lidoderm TD 1 ea DAILY SHARI Administration Naproxen 550 mg 06/20/18 18:00 06/20/18 18:28 Anaprox Ds PO Not Given BID SHARI Ondansetron HCl 4 mg 06/18/18 17:17 Zofran Inj IVP Q6 PRN Nausea/Vomiting Pantoprazole Sodium 20 mg 06/19/18 10:00 06/20/18 10:12 Protonix Ec Tab PO 20 mg DAILY SHARI Administration Sodium Chloride 2 gm 06/19/18 22:15 06/20/18 19:00 Sodium Chloride Tab PO 2 gm Q4H SHARI Administration - Patient Studies Lab Studies: Microbiology Studies 06/18/18 20:59 Urine Culture - Final Urine,Catheterized No Growth (<1,000 CFU/ML) 06/18/18 17:59 MRSA Culture (Admit) - Final Nose MRSA NOT DETECTED 06/18/18 20:59 Blood Culture - Preliminary Blood-Venous NO GROWTH AFTER 24 HOURS 06/18/18 20:59 Blood Culture - Preliminary Blood-Venous NO GROWTH AFTER 24 HOURS Lab Studies 06/20/18 06/20/18 06/20/18 Range/Units 17:20 14:57 13:42 WBC (4.8-10.8) K/uL RBC (3.80-5.20) Mil/uL Hgb (11.0-16.0) g/dL Hct (34.0-47.0) % MCV (81.0-99.0) fL MCH (27.0-31.0) pg MCHC (33.0-37.0) g/dL RDW (11.5-14.5) % Plt Count (130-400) K/uL MPV (7.2-11.7) fL Neut % (Auto) (50.0-75.0) % Lymph % (Auto) (20.0-40.0) % [place] % (Auto) (0.0-10.0) % Eos % (Auto) (0.0-4.0) % Baso % (Auto) (0.0-2.0) % Neut # (Auto) (1.8-7.0) K/uL Lymph # (Auto) (1.0-4.3) K/uL [place] # (Auto) (0.0-0.8) K/uL Eos # (Auto) (0.0-0.7) K/uL Baso # (Auto) (0.0-0.2) K/uL Sodium 122 L 117 L* (132-148) mmol/L Potassium 3.8 3.5 L (3.6-5.2) mmol/L Chloride 88 L 85 L (98-107) mmol/L Carbon Dioxide 25 24 (22-30) mmol/L Anion Gap 13 12 (10-20) BUN 7 7 (7-17) mg/dL Creatinine 0.6 L 0.6 L (0.7-1.2) mg/dL Est GFR ( Amer) > 60 > 60 Est GFR (Non-Af Amer) > 60 > 60 Random Glucose 123 H 110 H (65-105) mg/dL Hemoglobin A1c (4.2-6.5) % Calcium 8.4 L 7.8 L (8.6-10.4) mg/dl Phosphorus 1.5 L (2.5-4.5) mg/dL Magnesium (1.6-2.3) mg/dL Total Bilirubin 0.8 (0.2-1.3) mg/dL AST 94 H (14-36) U/L ALT 51 (9-52) U/L Alkaline Phosphatase 62 (38-126) U/L Total Protein 7.0 (6.3-8.3) g/dL Albumin 4.2 (3.5-5.0) g/dL Globulin 2.9 (2.2-3.9) gm/dL Albumin/Globulin Ratio 1.4 (1.0-2.1) Urine Osmolality 153 L (300-1000) mosm/kg Ur Random Sodium mmol/L 06/20/18 06/20/18 06/20/18 Range/Units 11:23 11:23 08:52 WBC (4.8-10.8) K/uL RBC (3.80-5.20) Mil/uL Hgb (11.0-16.0) g/dL Hct (34.0-47.0) % MCV (81.0-99.0) fL MCH (27.0-31.0) pg MCHC (33.0-37.0) g/dL RDW (11.5-14.5) % Plt Count (130-400) K/uL MPV (7.2-11.7) fL Neut % (Auto) (50.0-75.0) % Lymph % (Auto) (20.0-40.0) % [place] % (Auto) (0.0-10.0) % Eos % (Auto) (0.0-4.0) % Baso % (Auto) (0.0-2.0) % Neut # (Auto) (1.8-7.0) K/uL Lymph # (Auto) (1.0-4.3) K/uL [place] # (Auto) (0.0-0.8) K/uL Eos # (Auto) (0.0-0.7) K/uL Baso # (Auto) (0.0-0.2) K/uL Sodium 117 L* (132-148) mmol/L Potassium 3.8 (3.6-5.2) mmol/L Chloride 85 L (98-107) mmol/L Carbon Dioxide 23 (22-30) mmol/L Anion Gap 13 (10-20) BUN 8 (7-17) mg/dL Creatinine 0.5 L (0.7-1.2) mg/dL Est GFR ( Amer) > 60 Est GFR (Non-Af Amer) > 60 Random Glucose 94 (65-105) mg/dL Hemoglobin A1c (4.2-6.5) % Calcium 7.9 L (8.6-10.4) mg/dl Phosphorus (2.5-4.5) mg/dL Magnesium (1.6-2.3) mg/dL Total Bilirubin (0.2-1.3) mg/dL AST (14-36) U/L ALT (9-52) U/L Alkaline Phosphatase (38-126) U/L Total Protein (6.3-8.3) g/dL Albumin (3.5-5.0) g/dL Globulin (2.2-3.9) gm/dL Albumin/Globulin Ratio (1.0-2.1) Urine Osmolality 418 432 (300-1000) mosm/kg Ur Random Sodium 86 mmol/L 06/20/18 06/20/18 06/19/18 Range/Units 06:43 06:43 21:31 WBC 8.6 (4.8-10.8) K/uL RBC 4.30 (3.80-5.20) Mil/uL Hgb 12.7 (11.0-16.0) g/dL Hct 36.0 (34.0-47.0) % MCV 83.8 (81.0-99.0) fL MCH 29.6 (27.0-31.0) pg MCHC 35.3 (33.0-37.0) g/dL RDW 14.7 H (11.5-14.5) % Plt Count 267 (130-400) K/uL MPV 7.8 (7.2-11.7) fL Neut % (Auto) 68.0 (50.0-75.0) % Lymph % (Auto) 19.7 L (20.0-40.0) % [place] % (Auto) 11.1 H (0.0-10.0) % Eos % (Auto) 0.9 (0.0-4.0) % Baso % (Auto) 0.3 (0.0-2.0) % Neut # (Auto) 5.8 (1.8-7.0) K/uL Lymph # (Auto) 1.7 (1.0-4.3) K/uL [place] # (Auto) 1.0 H (0.0-0.8) K/uL Eos # (Auto) 0.1 (0.0-0.7) K/uL Baso # (Auto) 0.0 (0.0-0.2) K/uL Sodium 120 L* 118 L* (132-148) mmol/L Potassium 4.0 4.2 (3.6-5.2) mmol/L Chloride 89 L 85 L (98-107) mmol/L Carbon Dioxide 23 26 (22-30) mmol/L Anion Gap 12 12 (10-20) BUN 8 8 (7-17) mg/dL Creatinine 0.6 L 0.6 L (0.7-1.2) mg/dL Est GFR ( Amer) > 60 > 60 Est GFR (Non-Af Amer) > 60 > 60 Random Glucose 87 102 (65-105) mg/dL Hemoglobin A1c (4.2-6.5) % Calcium 7.8 L 7.9 L (8.6-10.4) mg/dl Phosphorus 1.4 L (2.5-4.5) mg/dL Magnesium 1.8 (1.6-2.3) mg/dL Total Bilirubin 0.9 (0.2-1.3) mg/dL AST 94 H (14-36) U/L ALT 54 H D (9-52) U/L Alkaline Phosphatase 54 (38-126) U/L Total Protein 6.5 (6.3-8.3) g/dL Albumin 3.7 (3.5-5.0) g/dL Globulin 2.8 (2.2-3.9) gm/dL Albumin/Globulin Ratio 1.3 (1.0-2.1) Urine Osmolality (300-1000) mosm/kg Ur Random Sodium mmol/L 06/19/18 06/19/18 Range/Units 21:31 21:31 WBC (4.8-10.8) K/uL RBC (3.80-5.20) Mil/uL Hgb (11.0-16.0) g/dL Hct (34.0-47.0) % MCV (81.0-99.0) fL MCH (27.0-31.0) pg MCHC (33.0-37.0) g/dL RDW (11.5-14.5) % Plt Count (130-400) K/uL MPV (7.2-11.7) fL Neut % (Auto) (50.0-75.0) % Lymph % (Auto) (20.0-40.0) % [place] % (Auto) (0.0-10.0) % Eos % (Auto) (0.0-4.0) % Baso % (Auto) (0.0-2.0) % Neut # (Auto) (1.8-7.0) K/uL Lymph # (Auto) (1.0-4.3) K/uL [place] # (Auto) (0.0-0.8) K/uL Eos # (Auto) (0.0-0.7) K/uL Baso # (Auto) (0.0-0.2) K/uL Sodium (132-148) mmol/L Potassium (3.6-5.2) mmol/L Chloride (98-107) mmol/L Carbon Dioxide (22-30) mmol/L Anion Gap (10-20) BUN (7-17) mg/dL Creatinine (0.7-1.2) mg/dL Est GFR ( Amer) Est GFR (Non-Af Amer) Random Glucose (65-105) mg/dL Hemoglobin A1c 6.0 (4.2-6.5) % Calcium (8.6-10.4) mg/dl Phosphorus (2.5-4.5) mg/dL Magnesium (1.6-2.3) mg/dL Total Bilirubin (0.2-1.3) mg/dL AST (14-36) U/L ALT (9-52) U/L Alkaline Phosphatase (38-126) U/L Total Protein (6.3-8.3) g/dL Albumin (3.5-5.0) g/dL Globulin (2.2-3.9) gm/dL Albumin/Globulin Ratio (1.0-2.1) Urine Osmolality 432 (300-1000) mosm/kg Ur Random Sodium mmol/L Laboratory Results - last 24 hr 06/19/18 06/19/18 06/19/18 21:31 21:31 21:31 WBC RBC Hgb Hct MCV MCH MCHC RDW Plt Count MPV Neut % (Auto) Lymph % (Auto) [place] % (Auto) Eos % (Auto) Baso % (Auto) Neut # (Auto) Lymph # (Auto) [place] # (Auto) Eos # (Auto) Baso # (Auto) Sodium 118 L* Potassium 4.2 Chloride 85 L Carbon Dioxide 26 Anion Gap 12 BUN 8 Creatinine 0.6 L Est GFR ( Amer) > 60 Est GFR (Non-Af Amer) > 60 Random Glucose 102 Hemoglobin A1c 6.0 Calcium 7.9 L Phosphorus Magnesium Total Bilirubin AST ALT Alkaline Phosphatase Total Protein Albumin Globulin Albumin/Globulin Ratio Urine Osmolality 432 Ur Random Sodium 06/20/18 06/20/18 06/20/18 06:43 06:43 08:52 WBC 8.6 RBC 4.30 Hgb 12.7 Hct 36.0 MCV 83.8 MCH 29.6 MCHC 35.3 RDW 14.7 H Plt Count 267 MPV 7.8 Neut % (Auto) 68.0 Lymph % (Auto) 19.7 L [place] % (Auto) 11.1 H Eos % (Auto) 0.9 Baso % (Auto) 0.3 Neut # (Auto) 5.8 Lymph # (Auto) 1.7 [place] # (Auto) 1.0 H Eos # (Auto) 0.1 Baso # (Auto) 0.0 Sodium 120 L* Potassium 4.0 Chloride 89 L Carbon Dioxide 23 Anion Gap 12 BUN 8 Creatinine 0.6 L Est GFR ( Amer) > 60 Est GFR (Non-Af Amer) > 60 Random Glucose 87 Hemoglobin A1c Calcium 7.8 L Phosphorus 1.4 L Magnesium 1.8 Total Bilirubin 0.9 AST 94 H ALT 54 H D Alkaline Phosphatase 54 Total Protein 6.5 Albumin 3.7 Globulin 2.8 Albumin/Globulin Ratio 1.3 Urine Osmolality 432 Ur Random Sodium 86 06/20/18 06/20/18 06/20/18 11:23 11:23 13:42 WBC RBC Hgb Hct MCV MCH MCHC RDW Plt Count MPV Neut % (Auto) Lymph % (Auto) [place] % (Auto) Eos % (Auto) Baso % (Auto) Neut # (Auto) Lymph # (Auto) [place] # (Auto) Eos # (Auto) Baso # (Auto) Sodium 117 L* 117 L* Potassium 3.8 3.5 L Chloride 85 L 85 L Carbon Dioxide 23 24 Anion Gap 13 12 BUN 8 7 Creatinine 0.5 L 0.6 L Est GFR ( Amer) > 60 > 60 Est GFR (Non-Af Amer) > 60 > 60 Random Glucose 94 110 H Hemoglobin A1c Calcium 7.9 L 7.8 L Phosphorus 1.5 L Magnesium Total Bilirubin AST ALT Alkaline Phosphatase Total Protein Albumin Globulin Albumin/Globulin Ratio Urine Osmolality 418 Ur Random Sodium 06/20/18 06/20/18 14:57 17:20 WBC RBC Hgb Hct MCV MCH MCHC RDW Plt Count MPV Neut % (Auto) Lymph % (Auto) [place] % (Auto) Eos % (Auto) Baso % (Auto) Neut # (Auto) Lymph # (Auto) [place] # (Auto) Eos # (Auto) Baso # (Auto) Sodium 122 L Potassium 3.8 Chloride 88 L Carbon Dioxide 25 Anion Gap 13 BUN 7 Creatinine 0.6 L Est GFR ( Amer) > 60 Est GFR (Non-Af Amer) > 60 Random Glucose 123 H Hemoglobin A1c Calcium 8.4 L Phosphorus Magnesium Total Bilirubin 0.8 AST 94 H ALT 51 Alkaline Phosphatase 62 Total Protein 7.0 Albumin 4.2 Globulin 2.9 Albumin/Globulin Ratio 1.4 Urine Osmolality 153 L Ur Random Sodium Critical Care Progress Note - Nutrition Nutrition: Nutrition Category Date Time Status Regular Diet [DIET] Diets 06/20/18 Lunch Active Attending/Attestation - Attestation I have personally seen and examined this patient.: Yes I have fully participated in the care of the patient.: Yes I have reviewed all pertinent clinical information: Yes Notes (Text): 06/20/18 19:33 pt is having
[2018-06-20 14:21] LABS: BLOOD UREA NITROGEN 7 mg/dL (7-17); CALCIUM 7.8 mg/dl (8.6-10.4); GFR NON-AFRICAN AMERICAN > 60
--- NOTE | 2018-06-20 17:21 | CT ---
Date of service: 06/20/2018 PROCEDURE: CT HEAD WITHOUT CONTRAST. HISTORY: altered mental status COMPARISON: No prior study available for comparison TECHNIQUE: Axial computed tomography images were obtained through the head/brain without intravenous contrast. Radiation dose: Total exam DLP = 2292.88 mGy-cm. This CT exam was performed using one or more of the following dose reduction techniques: Automated exposure control, adjustment of the mA and/or kV according to patient size, and/or use of iterative reconstruction technique. FINDINGS: HEMORRHAGE: No acute parenchymal, subarachnoid or extra-axial hemorrhage. BRAIN: There are scattered deep and subcortical white matter chronic appearing ischemic changes. Additionally, minor diffuse/confluent chronic periventricular white matter ischemic changes. There is a large approximately 2.4 x 2 point 4 cm dense calcification in the left posterior superior parietal extra-axial space that most likely represents a large calcified meningioma. There is an additional smaller elliptical shaped calcification more inferior in location in the right posterior frontal extra-axial space that measures approximately 5.8 mm in greatest dimension. Additionally, hyperostosis frontalis interna felt to be present as well. Moderate generalized volume loss. VENTRICLES: No obstructive hydrocephalus. CALVARIUM: Unremarkable. PARANASAL SINUSES: Unremarkable as visualized. No significant inflammatory changes. MASTOID AIR CELLS: Unremarkable as visualized. No inflammatory changes. OTHER FINDINGS: None. IMPRESSION: No acute intracranial hemorrhage. Chronic appearing deep and subcortical white matter and lesser periventricular white matter ischemic changes.. Moderate generalized volume loss. Probable large calcified meningioma left posterior superior parietal region.
[2018-06-20 17:40] LABS: ALB/GLOB RATIO 1.4 (1.0-2.1); ALBUMIN 4.2 g/dL (3.5-5.0); ALT/SGPT 51 U/L (9-52); AST/SGOT 94 U/L (14-36); BLOOD UREA NITROGEN 7 mg/dL (7-17); CALCIUM 8.4 mg/dl (8.6-10.4); GFR NON-AFRICAN AMERICAN > 60
[2018-06-20] MEDS: Lidocaine 5% Patch TD SCH (17:54)
[2018-06-20] MEDS ORDERED: Lidocaine 2% Inj (20ml) INFIL ONE (18:12)
[2018-06-20] MEDS: Naproxen 550 mg Tab PO SCH (18:28)
[2018-06-20] MEDS ORDERED: Naproxen 550 mg Tab PO SCH (22:00)
--- NOTE | 2018-06-20 22:00 | CARD ---
APPROVED REPORT Date of service: 06/18/2018 EKG Measurement Heart Mgre04INMS [place] [id number] <Conclusion> Normal sinus rhythm Nonspecific T wave abnormality Abnormal ECG
--- NOTE | 2018-06-20 22:17 | CP.PCM.PN ---
Objective - Vital Signs/Intake and Output Vital Signs (last 24 hours): Temp Pulse Resp BP Pulse Ox 97.9 F 75 17 123/45 L 97 06/20/18 16:00 06/20/18 20:00 06/20/18 20:00 06/20/18 19:17 06/20/18 17:16 Intake and Output: 06/20/18 06/21/18 18:59 06:59 Intake Total 900 100 Output Total 1610 140 Balance -710 -40 - Medications Medications: Current Medications Acetaminophen (Tylenol 325mg Tab) 650 mg PO Q6 PRN PRN Reason: Pain, moderate (4-7) Last Admin: 06/20/18 14:34 Dose: 650 mg Enoxaparin Sodium (Lovenox) 30 mg SC DAILY [facility] Last Admin: 06/20/18 10:12 Dose: 30 mg Levothyroxine Sodium (Synthroid) 25 mcg PO DAILY@0630 [facility] Lidocaine (Lidoderm) 1 ea TD DAILY [facility] Last Admin: 06/20/18 17:54 Dose: 1 ea Naproxen (Anaprox Ds) 550 mg PO BID [facility] Last Admin: 06/20/18 18:28 Dose: Not Given Ondansetron HCl (Zofran Inj) 4 mg IVP Q6 PRN PRN Reason: Nausea/Vomiting Pantoprazole Sodium (Protonix Ec Tab) 20 mg PO DAILY [facility] Last Admin: 06/20/18 10:12 Dose: 20 mg Sodium Chloride (Sodium Chloride Tab) 2 gm PO Q4H [facility] Last Admin: 06/20/18 21:28 Dose: 2 gm - Labs Labs: 06/20/18 06:43 06/20/18 17:20
[2018-06-20 23:27] LABS: BLOOD UREA NITROGEN 7 mg/dL (7-17); GFR NON-AFRICAN AMERICAN > 60
[2018-06-21] MEDS: Levothyroxine 25 MCG TAB PO SCH (06:01)
[2018-06-21 06:15] LABS: BASO % 0.4 % (0.0-2.0); EOS # 0.1 K/uL (0.0-0.7); EOS % 1.2 % (0.0-4.0); HEMOGLOBIN 12.6 g/dL (11.0-16.0); LYMPH # 2.3 K/uL (1.0-4.3); LYMPH % 23.2 % (20.0-40.0); MEAN CELL VOLUME 84.4 fL (81.0-99.0); MEAN CORPUSCULAR HEMOGLOBIN 29.4 pg (27.0-31.0); MEAN CORPUSCULAR HGB CONC 34.8 g/dL (33.0-37.0); MEAN PLATELET VOLUME 7.8 fL (7.2-11.7); MONO # 1.1 K/uL (0.0-0.8); MONO % 10.7 % (0.0-10.0); NEUT # 6.5 K/uL (1.8-7.0); NEUT % 64.5 % (50.0-75.0); NRBC % 0.1 % (0.0-2.0); RBC 4.28 Mil/uL (3.80-5.20); RED CELL DISTRIBUTION WIDTH 14.6 % (11.5-14.5)
[2018-06-21 06:45] LABS: ALB/GLOB RATIO 1.3 (1.0-2.1); ALBUMIN 3.6 g/dL (3.5-5.0); ALT/SGPT 44 U/L (9-52); AST/SGOT 64 U/L (14-36); BLOOD UREA NITROGEN 6 mg/dL (7-17); GFR NON-AFRICAN AMERICAN > 60
[2018-06-21] MEDS ORDERED: Potassium Chloride 20 mEq ER Tab PO ONE ×2 (08:22→09:45)
--- NOTE | 2018-06-21 08:37 | CP.PCM.PN ---
<Aliza Drew - Last Filed: 06/21/18 13:29> Subjective - Date & Time of Evaluation Date of Evaluation: 06/21/18 Time of Evaluation: 08:35 - Subjective Subjective: Aliza Drew DO, PGY-2: Nephrology Progress Note for Dr. Arevalo Patient was seen and examined at bedside with son present. Patient reports she slept well after being given Lidocaine patch on her left knee. She is tolerating her diet without complaints. She denies any nausea, vomiting, headache, or changes in behavior. Son at bedside acted as health nurse. Objective - Vital Signs/Intake and Output Vital Signs (last 24 hours): Temp Pulse Resp BP Pulse Ox 98.3 F 75 14 159/74 H 95 06/21/18 04:00 06/21/18 07:00 06/21/18 07:00 06/21/18 06:17 06/21/18 07:00 Intake and Output: 06/21/18 06/21/18 06:59 18:59 Intake Total 100 0 Output Total 640 50 Balance -540 -50 - Medications Medications: Current Medications Acetaminophen (Tylenol 325mg Tab) 650 mg PO Q6 PRN PRN Reason: Pain, moderate (4-7) Last Admin: 06/20/18 14:34 Dose: 650 mg Enoxaparin Sodium (Lovenox) 30 mg SC DAILY [facility] Last Admin: 06/20/18 10:12 Dose: 30 mg Levothyroxine Sodium (Synthroid) 25 mcg PO DAILY@0630 [facility] Last Admin: 06/21/18 06:01 Dose: 25 mcg Lidocaine (Lidoderm) 1 ea TD DAILY [facility] Last Admin: 06/20/18 17:54 Dose: 1 ea Naproxen (Anaprox Ds) 550 mg PO BID [facility] Last Admin: 06/20/18 18:28 Dose: Not Given Ondansetron HCl (Zofran Inj) 4 mg IVP Q6 PRN PRN Reason: Nausea/Vomiting Pantoprazole Sodium (Protonix Ec Tab) 20 mg PO DAILY [facility] Last Admin: 06/20/18 10:12 Dose: 20 mg Sodium Chloride (Sodium Chloride Tab) 2 gm PO Q4H [facility] Last Admin: 06/21/18 06:00 Dose: 2 gm - Labs Labs: 06/21/18 06:11 06/21/18 06:11 - Constitutional Appears: Well, Non-toxic - Head Exam Head Exam: ATRAUMATIC, NORMOCEPHALIC - Eye Exam Eye Exam: EOMI, Normal appearance - ENT Exam ENT Exam: Mucous Membranes Moist - Neck Exam Neck Exam: Normal Inspection - Respiratory Exam Respiratory Exam: Clear to Ausculation Bilateral, NORMAL BREATHING PATTERN. absent: Accessory Muscle Use - Cardiovascular Exam Cardiovascular Exam: RRR, +S1, +S2 - GI/Abdominal Exam GI & Abdominal Exam: Soft, Normal Bowel Sounds - Extremities Exam Extremities Exam: Normal Inspection. absent: Calf Tenderness Additional comments: lidocaine patch noted on right knee - Neurological Exam Neurological Exam: Alert, Awake, Oriented x3 - Psychiatric Exam Psychiatric exam: Normal Affect, Normal Mood - Skin Skin Exam: Dry, Intact, Normal Color, Warm Assessment and Plan - Assessment and Plan (Free Text) Plan: 1) Hyponatremia in the setting of pain, vomiting, NSAID and thiazide use - Serum Na 123 this morning - Can now monitor serum BMP and Urine osmoles q12h given patient has safely transition above the seizure threshold (Na 120) - Goal for safe rate in rise of serum Na 6-8 meq over 24 hr period (next target of serum Na in 130) tomorrow in AM - continue salt tabs 2 g q4h - 1200 cc PO fluid restriction - Replete K and Phosphorus Case reviewed and discussed with attending physician, Dr. Arevalo <Dennis Arevalo - Last Filed: 06/22/18 08:12> Objective - Vital Signs/Intake and Output Vital Signs (last 24 hours): Temp Pulse Resp BP Pulse Ox 98.9 F 78 19 138/69 97 06/22/18 04:00 06/22/18 04:00 06/22/18 04:00 06/22/18 04:00 06/22/18 04:00 - Medications Medications: Current Medications Acetaminophen (Tylenol 325mg Tab) 650 mg PO Q6 PRN PRN Reason: Pain, moderate (4-7) Last Admin: 06/20/18 14:34 Dose: 650 mg Enoxaparin Sodium (Lovenox) 30 mg SC DAILY [facility] Last Admin: 06/21/18 09:54 Dose: 30 mg Levothyroxine Sodium (Synthroid) 25 mcg PO DAILY@0630 [facility] Last Admin: 06/22/18 05:58 Dose: 25 mcg Lidocaine (Lidoderm) 1 ea TD DAILY [facility] Last Admin: 06/21/18 09:53 Dose: 1 ea Ondansetron HCl (Zofran Inj) 4 mg IVP Q6 PRN PRN Reason: Nausea/Vomiting Last Admin: 06/21/18 09:54 Dose: 4 mg Pantoprazole Sodium (Protonix Ec Tab) 20 mg PO DAILY [facility] Last Admin: 06/21/18 09:54 Dose: 20 mg Sodium Chloride (Sodium Chloride Tab) 2 gm PO Q4H [facility] Last Admin: 06/22/18 05:57 Dose: 2 gm - Labs Labs: 06/22/18 06:15 06/22/18 06:15 Assessment and Plan (1) Hyponatremia Status: Acute (2) Hypokalemia Status: Resolved (3) HTN (hypertension) Status: Chronic Attending/Attestation - Attestation I have personally seen and examined this patient.: Yes I have fully participated in the care of the patient.: Yes I have reviewed all pertinent clinical information, including history, physical exam and plan: Yes Notes (Text): Patient seen and examined; I agree with the resident's note as above with the following additions/edits: Patient with htn, hypothyroidism, admitted with severe hyponatremia; Serum Na increasing at safe rate (6-8 meq over 24 hrs); had to be given another dose of desmopressin yesterday after urine osm declined (appropriately) and there was concern for rapid rise in serum Na; HTN controlled off BP meds; -Will continue NaCl tabs 2 g q4hr for now; -continue 1200 cc PO fluid restriction; -continue to monitor bmp and urine osm q12h;
[2018-06-21] MEDS: Naproxen 550 mg Tab PO SCH (09:52)
[2018-06-21] MEDS: Lidocaine 5% Patch TD SCH (09:53)
[2018-06-21] MEDS: Pantoprazole 20 mg EC Tab PO SCH (09:54)
[2018-06-21] MEDS: Enoxaparin 30 mg Syringe SC SCH (09:54)
[2018-06-21] MEDS ORDERED: Influenza Vaccine 60 MCG/0.5 ML SYR (3 yr & up) IM ONE (10:00)
[2018-06-21] MEDS ORDERED: Potassium Phosphate 15 MMOLE in Sodium Chloride 0.9% 250 ML IVPB ONE (12:30)
[2018-06-21 17:11] LABS: BLOOD UREA NITROGEN 5 mg/dL (7-17); CALCIUM 5.4 mg/dl (8.6-10.4); GFR NON-AFRICAN AMERICAN > 60
[2018-06-21 21:27] LABS: BLOOD UREA NITROGEN 7 mg/dL (7-17); CALCIUM 7.9 mg/dl (8.6-10.4); GFR NON-AFRICAN AMERICAN > 60
--- NOTE | 2018-06-21 22:27 | CP.PCM.PN ---
Objective - Vital Signs/Intake and Output Vital Signs (last 24 hours): Temp Pulse Resp BP Pulse Ox 98.1 F 81 18 111/57 L 95 06/21/18 16:00 06/21/18 16:00 06/21/18 16:00 06/21/18 16:00 06/21/18 16:00 Intake and Output: 06/21/18 06/22/18 18:59 06:59 Intake Total 1050 Output Total 900 Balance 150 - Medications Medications: Current Medications Acetaminophen (Tylenol 325mg Tab) 650 mg PO Q6 PRN PRN Reason: Pain, moderate (4-7) Last Admin: 06/20/18 14:34 Dose: 650 mg Enoxaparin Sodium (Lovenox) 30 mg SC DAILY [facility] Last Admin: 06/21/18 09:54 Dose: 30 mg Levothyroxine Sodium (Synthroid) 25 mcg PO DAILY@0630 [facility] Last Admin: 06/21/18 06:01 Dose: 25 mcg Lidocaine (Lidoderm) 1 ea TD DAILY [facility] Last Admin: 06/21/18 09:53 Dose: 1 ea Ondansetron HCl (Zofran Inj) 4 mg IVP Q6 PRN PRN Reason: Nausea/Vomiting Last Admin: 06/21/18 09:54 Dose: 4 mg Pantoprazole Sodium (Protonix Ec Tab) 20 mg PO DAILY [facility] Last Admin: 06/21/18 09:54 Dose: 20 mg Sodium Chloride (Sodium Chloride Tab) 2 gm PO Q4H [facility] Last Admin: 06/21/18 17:45 Dose: 2 gm - Labs Labs: 06/21/18 06:11 06/21/18 21:11
--- NOTE | 2018-06-22 01:45 | PN ---
DATE: 06/20/2018 SUBJECTIVE: Nikita is feeling better. She still has right knee pain. She is not dizzy. She does not have any headache, dizziness, chest pain, or palpitation. She denies any nausea, vomiting, or diarrhea. She denies any polyuria, polydipsia, or polyphagia. PHYSICAL EXAMINATION: VITAL SIGNS: BP 122/45, pulse 67, respiratory rate 20, temperature 98. LUNGS: Clear. CARDIOVASCULAR SYSTEM: S1 and S2, regular. ABDOMEN: Soft. ASSESSMENT: 1. Dehydration, hyponatremia. 2. Hypertension, on diuretics. 3. Right knee pain with osteoarthritis. PLAN: Continue IV fluids. Replace sodium. Monitor the patient. Juan R Bullock MD
--- NOTE | 2018-06-22 02:54 | PN ---
DATE: 06/21/2018 SUBJECTIVE: Nikita is feeling better. Her blood pressure is up. The patient's sodium is up. She is having right knee pain. She has a Lidoderm patch in place. She denies any shortness of breath, nausea, or vomiting. PHYSICAL EXAMINATION: VITAL SIGNS: Blood pressure 111/57, pulse 81, respiratory rate 18, and temperature 98.1. LUNGS: Clear. CARDIOVASCULAR SYSTEM: S1 and S2, regular. ABDOMEN: Soft. ASSESSMENT: 1. Severe hyponatremia, hypochloremia, on intravenous fluids and is improving. 2. Right knee pain with osteoarthritis. 3. Hypertension. PLAN: Continue IV fluids. Monitor electrolytes. Monitor the patient. Juan R Bullock MD
[2018-06-22] MEDS: Levothyroxine 25 MCG TAB PO SCH (05:58)
[2018-06-22 06:24] LABS: BASO # 0.1 K/uL (0.0-0.2); BASO % 0.6 % (0.0-2.0); EOS # 0.3 K/uL (0.0-0.7); EOS % 2.7 % (0.0-4.0); HEMOGLOBIN 12.7 g/dL (11.0-16.0); LYMPH # 2.8 K/uL (1.0-4.3); LYMPH % 25.6 % (20.0-40.0); MEAN CORPUSCULAR HEMOGLOBIN 29.5 pg (27.0-31.0); MEAN CORPUSCULAR HGB CONC 34.3 g/dL (33.0-37.0); MEAN PLATELET VOLUME 7.7 fL (7.2-11.7); MONO # 1.3 K/uL (0.0-0.8); MONO % 11.2 % (0.0-10.0); NEUT # 6.7 K/uL (1.8-7.0); NEUT % 59.9 % (50.0-75.0); RBC 4.3 Mil/uL (3.80-5.20); RED CELL DISTRIBUTION WIDTH 14.9 % (11.5-14.5); WHITE BLOOD COUNT 11.1 K/uL (4.8-10.8)
[2018-06-22 06:35] VITALS: O2SAT 97
[2018-06-22 06:52] LABS: ALB/GLOB RATIO 1.3 (1.0-2.1); ALBUMIN 3.7 g/dL (3.5-5.0); ALT/SGPT 46 U/L (9-52); AST/SGOT 44 U/L (14-36); BLOOD UREA NITROGEN 7 mg/dL (7-17); CALCIUM 8.2 mg/dl (8.6-10.4); GFR NON-AFRICAN AMERICAN > 60
--- NOTE | 2018-06-22 08:07 | CP.PCM.PN ---
Subjective - Date & Time of Evaluation Date of Evaluation: 06/22/18 Time of Evaluation: 08:06 - Subjective Subjective: Aliza Drew DO, PGY-2: Nephrology Progress Note for Dr. Arevalo Patient was seen and examined at bedside with son present. Patient is sitting OOB in chair, watching TV and resting comfortably with her son sitting alongside. She is tolerating her diet without complaints. She denies any nausea, vomiting, headache, or changes in behavior. Son at bedside acted as adhesive sprayer. Objective - Vital Signs/Intake and Output Vital Signs (last 24 hours): Temp Pulse Resp BP Pulse Ox 98.9 F 78 19 138/69 97 06/22/18 04:00 06/22/18 04:00 06/22/18 04:00 06/22/18 04:00 06/22/18 04:00 - Medications Medications: Current Medications Acetaminophen (Tylenol 325mg Tab) 650 mg PO Q6 PRN PRN Reason: Pain, moderate (4-7) Last Admin: 06/20/18 14:34 Dose: 650 mg Enoxaparin Sodium (Lovenox) 30 mg SC DAILY [facility] Last Admin: 06/21/18 09:54 Dose: 30 mg Levothyroxine Sodium (Synthroid) 25 mcg PO DAILY@0630 [facility] Last Admin: 06/22/18 05:58 Dose: 25 mcg Lidocaine (Lidoderm) 1 ea TD DAILY [facility] Last Admin: 06/21/18 09:53 Dose: 1 ea Ondansetron HCl (Zofran Inj) 4 mg IVP Q6 PRN PRN Reason: Nausea/Vomiting Last Admin: 06/21/18 09:54 Dose: 4 mg Pantoprazole Sodium (Protonix Ec Tab) 20 mg PO DAILY [facility] Last Admin: 06/21/18 09:54 Dose: 20 mg Sodium Chloride (Sodium Chloride Tab) 2 gm PO Q4H [facility] Last Admin: 06/22/18 05:57 Dose: 2 gm - Labs Labs: 06/22/18 06:15 06/22/18 06:15 - Constitutional Appears: Well, Non-toxic - Head Exam Head Exam: ATRAUMATIC, NORMOCEPHALIC - Eye Exam Eye Exam: EOMI, Normal appearance - ENT Exam ENT Exam: Mucous Membranes Moist - Neck Exam Neck Exam: Normal Inspection - Respiratory Exam Respiratory Exam: Clear to Ausculation Bilateral, NORMAL BREATHING PATTERN. absent: Accessory Muscle Use - Cardiovascular Exam Cardiovascular Exam: RRR, +S1, +S2 - GI/Abdominal Exam GI & Abdominal Exam: Soft, Normal Bowel Sounds - Extremities Exam Extremities Exam: Normal Inspection. absent: Calf Tenderness - Neurological Exam Neurological Exam: Alert, Awake, Oriented x3 - Psychiatric Exam Psychiatric exam: Normal Affect, Normal Mood - Skin Skin Exam: Dry, Intact, Normal Color, Warm Assessment and Plan - Assessment and Plan (Free Text) Assessment: 83 year old female with a past medical history of hypertension and hypothyroidism who presented to after multiple episodes of clear emesis in the setting of NSAID, thiazide use, and polydipsia and at the time of admission was found to have a serum Na of 108. 1) Hyponatremia (resolved) - Serum Na 134 this morning - Na tablets to be 1 gm q8h [facility] - 1200 cc PO fluid restriction 2) Hypophosphatemia - Neutra-phos 1 packet TID 3) Hypocalcemia, asymptomatic - Serum Ca is 8.2 4) Hypertension - Blood pressure controlled without medications We will continue to follow with you Case reviewed and discussed with attending physician, Dr. Arevalo
[2018-06-22] MEDS: Pantoprazole 20 mg EC Tab PO SCH (09:35)
[2018-06-22] MEDS: Enoxaparin 30 mg Syringe SC SCH (10:02)
[2018-06-22] MEDS: Potassium & Sodium Phosphate PO SCH ×3 (10:02→17:26)
[2018-06-22] MEDS: Lidocaine 5% Patch TD SCH (10:02)
[2018-06-22 15:52] VITALS: BP 107/67; PULSE 81; RESP 19; TEMP 98.4
--- NOTE | 2018-06-22 17:07 | CP.PCM.PN ---
Subjective - Date & Time of Evaluation Date of Evaluation: 06/22/18 Time of Evaluation: 17:07 Objective - Vital Signs/Intake and Output Vital Signs (last 24 hours): Temp Pulse Resp BP Pulse Ox 98.4 F 81 19 107/67 97 06/22/18 15:51 06/22/18 15:51 06/22/18 15:51 06/22/18 15:51 06/22/18 08:00 Intake and Output: 06/22/18 06/22/18 06:59 18:59 Intake Total 510 Output Total 320 Balance 190 - Medications Medications: Current Medications Acetaminophen (Tylenol 325mg Tab) 650 mg PO Q6 PRN PRN Reason: Pain, moderate (4-7) Last Admin: 06/22/18 11:03 Dose: 650 mg Enoxaparin Sodium (Lovenox) 30 mg SC DAILY [facility] Last Admin: 06/22/18 10:02 Dose: 30 mg Levothyroxine Sodium (Synthroid) 25 mcg PO DAILY@0630 [facility] Last Admin: 06/22/18 05:58 Dose: 25 mcg Lidocaine (Lidoderm) 1 ea TD DAILY [facility] Last Admin: 06/22/18 10:02 Dose: 1 ea Ondansetron HCl (Zofran Inj) 4 mg IVP Q6 PRN PRN Reason: Nausea/Vomiting Last Admin: 06/21/18 09:54 Dose: 4 mg Pantoprazole Sodium (Protonix Ec Tab) 20 mg PO DAILY [facility] Last Admin: 06/21/18 09:54 Dose: 20 mg Potassium Phos/Sodium Phos (Neutra-Phos) 1 pkt PO TID [facility] Last Admin: 06/22/18 15:55 Dose: 1 pkt Sodium Chloride (Sodium Chloride Tab) 1 gm PO Q8H [facility] - Labs Labs: 06/22/18 06:15 06/22/18 06:15 Assessment and Plan - Assessment and Plan (Free Text) Assessment: FOLLOW UP WITH DR REYNOSO IN 1-2 WEEK AT HIS OFFICE ----CALL FOR APPOINTMENT FOLLOW UP WITH DR BORRERO IN 1 WEEK ----CALL FOR APPOINTMENT ADDRESS YOUR REPEAT BLOOD WORK TO CHECK YOUR SODIUM BLOOD WORK BMP IN ONE WEEK CONTINUE HOME MEDICATION NEW PRESCRIPTION GIVEN SODIUM CHOLRIDE 1 G ONE TAB Q12H FOR 2 WEEK lidoderm patch daily for 3 days ACTIVITY TOLERATED FLUID RESTRICTION ONE AND HALF LITER PEER DAY CALL DR BORRERO OR DR REYNOSO OR GO TO THE EMERGENCY ROOM IF SYMPTOM RETURN OR WORSENING
--- NOTE | 2018-06-22 22:23 | CP.PCM.DIS ---
Provider - Provider Date of Admission: 06/18/18 16:36 Attending physician: Juan R Bullock MD Hospital Course - Lab Results Lab Results: Micro Results 06/18/18 20:59 Blood-Venous Blood Culture - Preliminary NO GROWTH AFTER 4 DAYS 06/18/18 20:59 Blood-Venous Blood Culture - Preliminary NO GROWTH AFTER 4 DAYS 06/18/18 20:59 Urine,Catheterized Urine Culture - Final No Growth (<1,000 CFU/ML) 06/18/18 17:59 Nose MRSA Culture (Admit) - Final MRSA NOT DETECTED Most Recent Lab Values WBC 11.1 K/uL (4.8-10.8) H 06/22/18 06:15 RBC 4.30 Mil/uL (3.80-5.20) 06/22/18 06:15 Hgb 12.7 g/dL (11.0-16.0) 06/22/18 06:15 Hct 36.9 % (34.0-47.0) 06/22/18 06:15 MCV 86.0 fL (81.0-99.0) 06/22/18 06:15 MCH 29.5 pg (27.0-31.0) 06/22/18 06:15 MCHC 34.3 g/dL (33.0-37.0) 06/22/18 06:15 RDW 14.9 % (11.5-14.5) H 06/22/18 06:15 Plt Count 282 K/uL (130-400) 06/22/18 06:15 MPV 7.7 fL (7.2-11.7) 06/22/18 06:15 Neut % (Auto) 59.9 % (50.0-75.0) 06/22/18 06:15 Lymph % (Auto) 25.6 % (20.0-40.0) 06/22/18 06:15 [place] % (Auto) 11.2 % (0.0-10.0) H 06/22/18 06:15 Eos % (Auto) 2.7 % (0.0-4.0) 06/22/18 06:15 Baso % (Auto) 0.6 % (0.0-2.0) 06/22/18 06:15 Neut # (Auto) 6.7 K/uL (1.8-7.0) 06/22/18 06:15 Lymph # (Auto) 2.8 K/uL (1.0-4.3) 06/22/18 06:15 [place] # (Auto) 1.3 K/uL (0.0-0.8) H 06/22/18 06:15 Eos # (Auto) 0.3 K/uL (0.0-0.7) 06/22/18 06:15 Baso # (Auto) 0.1 K/uL (0.0-0.2) 06/22/18 06:15 Neutrophils % (Manual) 82 % (50-75) H 06/19/18 06:23 Band Neutrophils % 1 % (0-2) 06/19/18 06:23 Lymphocytes % (Manual) 8 % (20-40) L 06/19/18 06:23 Monocytes % (Manual) 9 % (0-10) 06/19/18 06:23 Platelet Estimate Normal (NORMAL) 06/19/18 06:23 RBC Morphology Normal 06/19/18 06:23 Sodium 134 mmol/L (132-148) 06/22/18 06:15 Potassium 4.1 mmol/L (3.6-5.2) 06/22/18 06:15 Chloride 101 mmol/L (98-107) 06/22/18 06:15 Carbon Dioxide 26 mmol/L (22-30) 06/22/18 06:15 Anion Gap 11 (10-20) 06/22/18 06:15 BUN 7 mg/dL (7-17) 06/22/18 06:15 Creatinine 0.6 mg/dL (0.7-1.2) L 06/22/18 06:15 Est GFR ( Amer) > 60 06/22/18 06:15 Est GFR (Non-Af Amer) > 60 06/22/18 06:15 Random Glucose 89 mg/dL (65-105) 06/22/18 06:15 Hemoglobin A1c 6.0 % (4.2-6.5) 06/19/18 21:31 Serum Osmolality 229 mosm/kg (272-300) L 06/18/18 18:53 Uric Acid 2.4 mg/dL (2.2-7.5) 06/19/18 06:23 Calcium 8.2 mg/dl (8.6-10.4) L 06/22/18 06:15 Phosphorus 2.1 mg/dL (2.5-4.5) L 06/22/18 06:15 Magnesium 2.0 mg/dL (1.6-2.3) 06/22/18 06:15 Total Bilirubin 0.4 mg/dL (0.2-1.3) 06/22/18 06:15 AST 44 U/L (14-36) H D 06/22/18 06:15 ALT 46 U/L (9-52) 06/22/18 06:15 Alkaline Phosphatase 56 U/L (38-126) 06/22/18 06:15 NT-Pro-B Natriuret Pep 915 pg/mL (0-900) H 06/18/18 18:53 Total Protein 6.5 g/dL (6.3-8.3) 06/22/18 06:15 Albumin 3.7 g/dL (3.5-5.0) 06/22/18 06:15 Globulin 2.8 gm/dL (2.2-3.9) 06/22/18 06:15 Albumin/Globulin Ratio 1.3 (1.0-2.1) 06/22/18 06:15 Triglycerides 43 mg/dL (0-149) 06/18/18 18:53 Cholesterol 186 mg/dL (0-199) 06/18/18 18:53 LDL Cholesterol Direct 54 mg/dL (0-129) 06/18/18 18:53 HDL Cholesterol 98 mg/dL (30-70) H 06/18/18 18:53 Lipase 64 U/L (23-300) 06/18/18 15:06 Free T4 1.49 ng/dL (0.78-2.19) 06/18/18 18:53 Thyroxine (T4) 10.0 ug/dL (5.5-11.0) 06/18/18 18:53 Free T3 pg/mL 2.05 pg/mL (2.77-5.27) L 06/18/18 18:53 Total T3 0.963 nmol/L (1.49-2.60) L 06/18/18 18:53 TSH 3rd Generation 4.54 mIU/L (0.46-4.68) 06/18/18 18:53 Cortisol AM Sample 21.0 ug/dL (4.46-22.7) 06/19/18 06:23 Urine Color Straw (YELLOW) 06/19/18 08:25 Urine Clarity Hazy (Clear) 06/19/18 08:25 Urine pH 7.0 (5.0-8.0) 06/19/18 08:25 Ur Specific [place] 1.001 (1.003-1.030) L 06/19/18 08:25 Urine Protein Negative mg/dL (NEGATIVE) 06/19/18 08:25 Urine Glucose (UA) Normal mg/dL (Normal) 06/19/18 08:25 Urine Ketones Negative mg/dL (NEGATIVE) 06/19/18 08:25 Urine Blood 1+ (NEGATIVE) H 06/19/18 08:25 Urine Nitrate Negative (NEGATIVE) 06/19/18 08:25 Urine Bilirubin Negative (NEGATIVE) 06/19/18 08:25 Urine Urobilinogen Normal mg/dL (0.2-1.0) 06/19/18 08:25 Ur Leukocyte Esterase Trace [place]/uL (Negative) 06/19/18 08:25 Urine WBC (Auto) < 1 /hpf (0-5) 06/19/18 08:25 Urine RBC (Auto) < 1 /hpf (0-3) 06/19/18 08:25 Ur Squamous Epith Cells 1 /hpf (0-5) 06/19/18 08:25 Urine Osmolality 366 mosm/kg (300-1000) 06/22/18 06:23 Ur Random Creatinine 53.4 mg/dL 06/18/18 19:26 Ur Random Sodium 86 mmol/L 06/20/18 08:52 Ur Random Potassium 67.3 mmol/L 06/18/18 19:26 Ur Random Urea Nitrogn 498 mg/dL 06/18/18 19:26 Urine Chloride 68 mmol/L (32-290) 06/18/18 23:01 Discharge Exam - Head Exam Head Exam: ATRAUMATIC, NORMOCEPHALIC Discharge Plan - Discharge Medications Prescriptions: Lidocaine 5% [Lidoderm] 1 ea TD DAILY 3 Days patch Sodium Chloride [Sodium Chloride Tab] 1 gm PO Q12H 14 Days tab - Follow Up Plan Condition: GOOD Disposition: HOME/ ROUTINE Instructions: Hyponatremia (DC) Additional Instructions: FOLLOW UP WITH DR BULLOCK IN 1-2 WEEK AT HIS OFFICE ----CALL FOR APPOINTMENT FOLLOW UP WITH DR AREVALO IN 1 WEEK ----CALL FOR APPOINTMENT ADDRESS YOUR REPEAT BLOOD WORK TO CHECK YOUR SODIUM BLOOD WORK BMP IN ONE WEEK CONTINUE HOME MEDICATION NEW PRESCRIPTION GIVEN SODIUM CHOLRIDE 1 G ONE TAB Q12H FOR 2 WEEK lidoderm patch daily for 3 days ACTIVITY TOLERATED FLUID RESTRICTION ONE AND HALF LITER PEER DAY CALL DR AREVALO OR DR BULLOCK OR GO TO THE EMERGENCY ROOM IF SYMPTOM RETURN OR WORSENING Referrals: Juan R Bullock MD [Staff Provider] - Dennis Arevalo MD [Staff Provider] -
== END 2018-06-22 18:07 | disposition home or self-care (01) | DRG 641 ==
LOC: C.ER 13:11 → C.9E 16:36 → C.9I 17:22
PROVIDERS: ADMIT Internal Medicine; ATTEND Internal Medicine
DX: E87.1 Hypo-osmolality and hyponatremia (principal); E78.5 Hyperlipidemia, unspecified; E03.9 Hypothyroidism, unspecified; E83.39 Other disorders of phosphorus metabolism; E86.0 Dehydration; E87.6 Hypokalemia; I10 Essential (primary) hypertension; M17.11 Unilateral primary osteoarthritis, right knee; K29.70 Gastritis, unspecified, without bleeding; E83.51 Hypocalcemia; E26.1 Secondary hyperaldosteronism

== ENCOUNTER 2019-02-08 07:34 | Day surgery (SDC) | payer MEDICARE, OTHER ==
[2019-02-08 08:00] VITALS: BMI 28.2
[2019-02-08 08:25] VITALS: RESP 18
[2019-02-08] MEDS ORDERED: Bupivacaine 0.25% 20 ML INJ IJ ONE (10:02)
[2019-02-08] MEDS ORDERED: Lidocaine/Epinephrine 1% 1:100000 10 ML IJ ONE (10:03)
--- NOTE | 2019-02-08 10:53 | PCM.SURG1 ---
Surgeon's Initial Post Op Note - Surgeon's Notes Surgeon: Dr. Rincon Stress Engineer: none Type of Anesthesia: Local Anesthesia Administered By: Dr. Juarez Pre-Operative Diagnosis: Right neck cyst Operative Findings: see op note Post-Operative Diagnosis: Right neck cyst Operation Performed: Excision of Right neck cyst Specimen/Specimens Removed: 1. Cyst of neck Estimated Blood Loss: EBL {In ML}: 5 Drains Used: No Drains Post-Op Condition: Good Date of Surgery/Procedure: 02/08/19 Time of Surgery/Procedure: 10:55
[2019-02-08 11:03] VITALS: BP 150/90; PULSE 80; TEMP 97; O2SAT 100
--- NOTE | 2019-02-14 02:50 | OP ---
PROCEDURE DATE: 02/08/2019 PREOPERATIVE DIAGNOSIS: Sebaceous cyst of the chest. POSTOPERATIVE DIAGNOSIS: Sebaceous cyst of the chest. PROCEDURES DONE: 1. Excision of sebaceous cyst of the chest. 2. Layered closure of the wound, simple, 2 x 1 cm size. SURGEON: Louis Rincon MD MUD MIXER: None. ANESTHESIA: Local anesthesia. ESTIMATED BLOOD LOSS: Around 10 mL. DRAINS: None. PATHOLOGY: Sebaceous cyst was sent for the pathology. COMPLICATIONS: None. INTRAOPERATIVE FINDINGS: The patient had approximately 2 x 2 cm sebaceous cyst of the right upper chest. DESCRIPTION OF PROCEDURE: On intraoperative steps, this is an 83-year-old female who was diagnosed with a sebaceous cyst of the chest. The patient was consented for the excision and brought to the OR, placed supine on the operating table. After monitoring, the right side of the chest was prepped and draped in the usual sterile fashion. Local anesthesia was injected. An elliptical incision was made. Upper and lower flaps were created. Sebaceous cyst was completely excised and it was sent to the table for the pathology. There was proper hemostasis in each and every part of the procedure and wound was irrigated and wound was closed in multiple layers, the deeper subcu with 3-0 Vicryl, superficial subcu with 3-0 Vicryl, and skin with 4-0 Monocryl. Dry sterile dressing was applied. The patient tolerated the procedure well. Count of instrument and gauze was correct. There was no apparent complication. Louis Rincon MD
== END 2019-02-08 11:09 | disposition home or self-care (01) ==
LOC: C.SDS 07:34
PROVIDERS: ATTEND Surgery Surgical Critical Care
DX: L72.3 Sebaceous cyst (principal)